=== PATIENT | female | born 1935 | race Asian ===

== ENCOUNTER 2016-09-13 19:58 | Observation (INO) | payer MEDICARE, OTHER ==
[~2016-09-13] VITALS: Ht 152.4 cm; Wt 47.0 kg
[2016-09-13] MEDS ORDERED: NITROGLYCERIN 2% 1 GM OINT PKT TD STA (20:29)
[2016-09-13] MEDS ORDERED: ONDANSETRON 4 MG INJ IV STA (20:29)
[2016-09-13] MEDS ORDERED: morphine 4 MG/ML VIAL IV STA (20:29)
[2016-09-13 21:07] LABS: BASOPHILS % 0.9 % (0.0-2.0); EOSINOPHILS # 0.3 10^3/ul (0.0-0.5); EOSINOPHILS % 5.8 % (0.0-7.0); HEMOGLOBIN 10.8 g/dl (12.0-16.0); LYMPHOCYTES # 2.2 10^3/ul (0.8-2.9); LYMPHOCYTES % 47.6 % (15.0-51.0); MEAN CORPUSCULAR HEMOGLOBIN 33.9 pg (29.0-33.0); MEAN CORPUSCULAR HGB CONC 34.8 g/dl (32.0-37.0); MEAN CORPUSCULAR VOLUME 97.2 fl (82.0-101.0); MEAN PLATELET VOLUME 9.1 fl (7.4-10.4); MONOCYTE # 0.6 10^3/ul (0.3-0.9); MONOCYTES % 12.9 % (0.0-11.0); NEUTROPHIL # 1.5 10^3/ul (1.6-7.5); NEUTROPHILS % 32.6 % (39.0-77.0); PLATELET COUNT 183 10^3/UL (140-415); RED BLOOD COUNT 3.19 10^6/ul (4.20-5.40); RED CELL DISTRIBUTION WIDTH 13.2 % (11.5-14.5); WHITE BLOOD COUNT 4.6 10^3/ul (4.8-10.8)
[2016-09-13 21:23] LABS: INR 1.16; PROTIME 14.8 Sec (12.2-14.2); PT RATIO 1.2
[2016-09-13 21:24] LABS: PARTIAL THROMBOPLASTIN TIME 36.3 Sec (25.0-35.0)
[2016-09-13 21:26] LABS: ALANINE AMINOTRANSFERASE 35 IU/L (13-69); ALBUMIN 3.8 g/dl (3.3-4.9); ALBUMIN/GLOBULIN RATIO 1.15; ALKALINE PHOSPHATASE 55 IU/L (42-121); ANION GAP 17 (8-16); ASPARTATE AMINO TRANSFERASE 34 IU/L (15-46); BILIRUBIN,INDIRECT 0.6 mg/dl (0-1.1); BILIRUBIN,TOTAL 0.6 mg/dl (0.2-1.3); BLOOD UREA NITROGEN 13 mg/dl (7-20); CALCIUM 8.7 mg/dl (8.4-10.2); CARBON DIOXIDE 27 mmol/L (21-31); CHLORIDE 91 mmol/L (97-110); CREATININE 0.82 mg/dl (0.44-1.00); GLUCOSE 87 mg/dl (70-220); POTASSIUM 3.9 mmol/L (3.5-5.1); SODIUM 131 mmol/L (135-144); TOTAL PROTEIN 7.1 g/dl (6.1-8.1)
[2016-09-13 21:43] LABS: TROPONIN-I < 0.012 ng/ml (0.00-0.12)
[2016-09-14] VITALS (10 sets, daily range): BP systolic 118–146; BP diastolic 58–67; PULSE 59–60; RESP 16–18; TEMP 98.3; Ht 152.4 cm; Wt 47.0 kg
--- NOTE | 2016-09-14 02:24 | RADRPT ---
PROCEDURE: Portable chest x-ray. CLINICAL INDICATION: Chest pain. TECHNIQUE: Portable AP view of the chest. COMPARISON: None. FINDINGS: No pulmonary edema or conolidation is identified. The cardiac silhouette is enlarged. There are aor tic calcifications. There is a left chest cardiac pacemaker. No pleural effusion is seen. There is no pneumothorax. IMPRESSION: 1. No evidence of acute cardiopulmonary disease. 2. Enlarged cardiac silhouette and aortic atherosclerosis. 3. Cardiac pacemaker. RPTAT: HTAR .Porfirio Martins MD, MD Date Time Electronically viewed and signed by .Porfirio Martins MD, MD on 09/14/2016 02:23 .R/
[2016-09-14] MEDS ORDERED: ALPR0.254 PO (02:34)
[2016-09-14] MEDS ORDERED: LOSA50TA6 PO (02:34)
[2016-09-14] MEDS ORDERED: ATOR20TA38 PO (02:34)
[2016-09-14] MEDS ORDERED: GLUC1CAP48 PO (02:34)
[2016-09-14] MEDS ORDERED: CALC600T5 PO (02:34)
[2016-09-14] MEDS ORDERED: MULT-860 PO (02:34)
[2016-09-14] MEDS ORDERED: APIX2.5T PO (02:34)
[2016-09-14] MEDS ORDERED: MAGN400T27 PO (02:34)
[2016-09-14] MEDS ORDERED: NACL 0.9% 3 ML SYG IV SCH (04:00)
[2016-09-14] MEDS ORDERED: BISACODYL (EC) 5 MG TAB PO PRN (04:00)
[2016-09-14] MEDS ORDERED: NITROGLYCERIN (SL) 0.4 MG TAB SL PRN (04:00)
[2016-09-14] MEDS ORDERED: ACETAMINOPHEN 325 MG TAB PO PRN (04:00)
[2016-09-14] MEDS ORDERED: DOCUSATE SODIUM 100 MG CAP PO PRN (04:00)
[2016-09-14] MEDS ORDERED: ONDANSETRON 4 MG INJ IV PRN (04:00)
[2016-09-14] MEDS ORDERED: ALPRAZOLAM 0.25 MG TAB PO PRN (04:00)
[2016-09-14] MEDS ORDERED: morphine 2 MG INJ IV PRN (04:00)
[2016-09-14] MEDS ORDERED: LOSA25TA5 PO (04:32)
[2016-09-14] MEDS ORDERED: PANTOPRAZOLE 40 MG INJ IV SCH (06:00)
[2016-09-14 06:01] LABS: BASOPHILS % 0.9 % (0.0-2.0); EOSINOPHILS # 0.2 10^3/ul (0.0-0.5); EOSINOPHILS % 5.2 % (0.0-7.0); HEMATOCRIT 34.9 % (37.0-47.0); HEMOGLOBIN 11.6 g/dl (12.0-16.0); LYMPHOCYTES # 1.8 10^3/ul (0.8-2.9); LYMPHOCYTES % 41.4 % (15.0-51.0); MEAN CORPUSCULAR HEMOGLOBIN 32.9 pg (29.0-33.0); MEAN CORPUSCULAR HGB CONC 33.2 g/dl (32.0-37.0); MEAN CORPUSCULAR VOLUME 98.9 fl (82.0-101.0); MEAN PLATELET VOLUME 10.1 fl (7.4-10.4); MONOCYTE # 0.5 10^3/ul (0.3-0.9); MONOCYTES % 10.8 % (0.0-11.0); NEUTROPHIL # 1.8 10^3/ul (1.6-7.5); NEUTROPHILS % 41.5 % (39.0-77.0); RED BLOOD COUNT 3.53 10^6/ul (4.20-5.40); RED CELL DISTRIBUTION WIDTH 13.5 % (11.5-14.5); WHITE BLOOD COUNT 4.4 10^3/ul (4.8-10.8)
[2016-09-14 06:04] LABS: PLATELET COUNT 146 10^3/UL (140-415); POSITIVE DIFF @See below
[2016-09-14 06:37] LABS: CREATINE KINASE 130 IU/L (23-200)
[2016-09-14 06:41] LABS: ALBUMIN 3.9 g/dl (3.3-4.9); ALBUMIN/GLOBULIN RATIO 1.21; BILIRUBIN,INDIRECT 0.7 mg/dl (0-1.1); BILIRUBIN,TOTAL 0.7 mg/dl (0.2-1.3); CALCIUM 8.8 mg/dl (8.4-10.2); CHOL/HDL RATIO 1.8 RATIO; CREATININE 0.85 mg/dl (0.44-1.00); MAGNESIUM 2.1 mg/dl (1.7-2.5); POTASSIUM 4.3 mmol/L (3.5-5.1); TOTAL PROTEIN 7.1 g/dl (6.1-8.1)
[2016-09-14 06:47] LABS: CK-MB 1.32 ng/ml (0.0-2.4)
[2016-09-14 07:00] LABS: TROPONIN-I < 0.012 ng/ml (0.00-0.12)
--- NOTE | 2016-09-14 07:46 | HP ---
Date/Time of Note Date/Time of Note DATE: 09/14/16 TIME: 07:40 Assessment/Plan VTE Prophylaxis VTE Prophylaxis Intervention: SCD's Lines/Catheters IV Catheter Type (from [facility]): Saline Lock Assessment/Plan Chief Complaint/Hosp Course This is a 80-year-old female being admitted to the telemetry floor for: #1 chest pain: Rule out ACS versus GI etiology: Based on patient's history and symptoms there is a good possibility that this is GI in nature however because of her comorbidities we will workup for cardiac etiology as well. Will trend cardiac enzymes. Will check a 2D echocardiogram. Will consult cardiology. Cardiac etiology is ruled out will consider GI evaluation. 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 Continue Eliquis. #3 anemia: Stable continue monitor. #4 hypertension: Verify home medication dosage. #5 DVT and GI prophylaxis: SCDs, Protonix Further treatment strategy will be implemented for clinical course. Problems: HPI/ROS Admit Date/Time Admit Date/Time Sep 14, 2016 at 03:46 Hx of Present Illness Chief complaint: Chest pain This is a 80-year-old female who is coming in today via ambulance to [facility] after having an episode of chest pain. Patient states that she was drinking Coke and eating biscuits and approximately within 20 minutes she started having epigastric/chest pain. She does state that she has a history of acid reflux as well. She was brought in by ambulance and ambulance receive nitro and aspirin and she also took a dose of her Eliquis and she states that her chest pain improved. She has history of A. fib and has a cardiac pacemaker. He is currently pain-free. Allergies: NKDA Medications: See DOUGLAS ROS Const: As per HPI Eyes : No pain discharge or redness or change in visual acuity ENT: No pain, sore throat, congestion, congestion, dysphagia or discharge Respiratory: No shortness of breath, cough, sputum, wheezing, or pleuritic pain Cardiovascular: As per HPI GI : As per HPI Genitourinary: No dysuria, hematuria, flank pain , discharge or CVA tenderness Musculoskeletal: No joint pain, back pain, neck pain, restricted range of motion in neck or joints Skin: No rash, bruising or hives Neuro: No headache, dizziness, syncope, seizure, focal weakness Endocrine: No polyuria, polydipsia, temperature intolerance Psych: No hallucination, depression, anxiety or suicidal ideation PMH/Family/Social Past Medical History TIA, anemia, A. fib, reflux, diverticulosis, hypertension Past Surgical History Pacemaker placement Family History Significant Family History: hypertension (Mom and dad) Social History Alcohol Use: none Smoking Status: Never smoker Drug Use: none Exam/Review of Systems Vital Signs Vitals Vital Signs Date Time Temp Pulse Resp B/P Pulse Ox O2 Delivery O2 Flow Rate FiO2 09/14/16 06:12 60 09/14/16 04:11 98.3 18 121/72 100 Room Air Exam Exam General: Patient is well-developed well-nourished The patient is alert oriented -3 lying comfortably in bed. HEENT: Atraumatic, normocephalic. The pupils are equal, round and reactive. Extraocular motor are intact Neck: Supple with full range of motion. No rigidity or meningismus Chest: Nontender Lungs: Clear to auscultation bilaterally no crackles rales or wheezing Heart: Normal S1-S2, Regular rhythm and rate. No murmur, S3, or S4 Abdomen: Soft, mild tenderness to palpation over the epigastric region, normal bowel sounds Extremities: Normal to inspection, no edema no cyanosis Neurologic: Normal mental status, speech normal, cranial nerves II through XII are intact, motor and sensory are intact, no focal weakness Additional Comments PROCEDURE: Portable chest x-ray. CLINICAL INDICATION: Chest pain. TECHNIQUE: Portable AP view of the chest. COMPARISON: None. FINDINGS: No pulmonary edema or conolidation is identified. The cardiac silhouette is enlarged. There are aortic calcifications. There is a left chest cardiac pacemaker. No pleural effusion is seen. There is no pneumothorax. IMPRESSION: 1. No evidence of acute cardiopulmonary disease. 2. Enlarged cardiac silhouette and aortic atherosclerosis. 3. Cardiac pacemaker. RPTAT: HTAR .Porfirio Martins MD, Date Time Electronically viewed and signed by .Porfirio Martins MD, on 09/14/2016 02:23 Labs Result Diagram: 09/14/16 0520 09/14/16 0520 Medications Medications Current Medications Ondansetron HCl (Zofran Inj) 4 mg Q6H PRN IV NAUSEA AND/OR VOMITING; Start at 04:00 Nitroglycerin (Nitroglycerin (Sl Tab) 0.4 Mg) 1 tab Q5M PRN SL CHEST PAIN; Start 09/14/16 at 04:00 Acetaminophen (Tylenol Tab) 650 mg Q6H PRN PO PAIN LEVEL 1-3 OR FEVER; Start at 04:00 Morphine Sulfate (morphine) 2 mg Q4H PRN IV PAIN LEVEL 7-10; Start 09/14/16 at 04:00 Docusate Sodium (Colace) 100 mg Q12H PRN PO CONSTIPATION; Start 09/14/16 at 04: 00 Bisacodyl (Dulcolax) 5 mg DAILY PRN PO CONSTIPATION; Start 09/14/16 at 04:00 Pantoprazole (Protonix Iv) 40 mg DAILY@06 IV Last administered on 09/14/16t 06: 39; Admin Dose 40 MG; Start 09/14/16 at 06:00 Alprazolam (Xanax) 0.25 mg TID PRN PO ANXIETY; Start 09/14/16 at 04:00 Apixaban (Eliquis) 2.5 mg BID PO ; Start 09/14/16 at 09:00 Atorvastatin Calcium (Lipitor) 20 mg QHS PO ; Start 09/14/16 at 21:00 Magnesium Oxide (Mag-Ox 400) 400 mg BID PO ; Start 09/14/16 at 09:00 JENNIE IBARRA Sep 14, 2016 07:46
[2016-09-14] MEDS ORDERED: MAGNESIUM OXIDE 400 MG TAB PO SCH (09:00)
[2016-09-14] MEDS ORDERED: APIXABAN 5 MG TABLET PO SCH (09:00)
[2016-09-14 12:01] LABS: THYROID STIMULATING HORMONE 3.66 MIU/L (0.465-4.680)
--- NOTE | 2016-09-14 12:16 | RADRPT ---
Echocardiogram Report Patient Name: BK QUARLES Gender: Female Date: 1935 Study Date: 14-Sep-2016 Supply Chain Analyst: Cassandra [facility] Location: [id number] Ref. Physician: JENNIE IBARRA Quality: Adequate Procedures: Transthoracic echocardiogram with complete 2D, M-Mode, and doppler examination. Indications: Chest Pain. 2D/M Mode Doppler Measurement Value Normal Ranges Measurement Value Normal Ranges LVIDd 2D 3.4 3.5 - 5.6 cm TANNER Vmax 0.8 cm2 LVIDs 2D 2.7 2.1 - 4.1 cm TANNER VTI 0.8 cm2 LVPWd 2D 1.1 0.6 - 1.1 cm AV Peak Noah 2.1 m/sec IVSd 2D 1.1 0.6 - 1.1 cm AV Peak PG 17.3 mmHg AoR Diam 2D 2.2 2.0 - 3.7 cm AI Peak PG 57.9 mmHg EDV 2D 47.8 cm3 AI Peak Noah 3.8 m/sec ESV 2D 19.3 cm3 AI PHT 1501.8 msec LA Dimen 2D 3.5 2.3 - 4.0 cm LVOT Peak Noah 1.0 m/sec LVOT Diam 1.5 cm LVOT Peak PG 3.7 mmHg MV E Peak Noah 0.7 m/sec MV A Peak Noah 0.5 m/sec MV E/A 1.2 MV Decel Time 195 msec MV Decel [place] 3 MV E/A 1.2 TR Peak Noah 3.0 m/sec TR Peak PG 35.5 mmHg RVSP 39.0 mmHg Findings Left Ventricle: Normal left ventricular systolic function. Normal left ventricular cavity size. Mild concentric left ventricular hypertrophy. Ejection fraction is visually estimated at 60 %. Right Ventricle: Normal right ventricular size. Normal right ventricular systolic function. Pacemaker right heart. Left Atrium: The left atrium is normal in size. Right Atrium: The right atrium is normal in size. Mitral Valve: Mild mitral leaflet calcification. Mild mitral annular calcification. Mild mitral valve regurgitation. Aortic Valve: Aortic sclerosis without stenosis. Mild aortic valve regurgitation. Tricuspid Valve: Tricuspid valve not well visualized. Estimated peak PA systolic pressure 39 mmHg. There is moderate tricuspid regurgitation. Pulmonic Valve: Pulmonic valve not well visualized. There is trace pulmonic regurgitation. Pericardium: Normal pericardium with no significant pericardial effusion. Aorta: Normal aortic root. IVC: Normal size and normal respiratory collapse consistent with normal right atrial pressure. Conclusions Normal left ventricular systolic function. Normal left ventricular cavity size. Mild concentric left ventricular hypertrophy. Ejection fraction is visually estimated at 60 %. Normal right ventricular size. Normal right ventricular systolic function. Pacemaker right heart. The left atrium is normal in size. The right atrium is normal in size. Mild mitral valve regurgitation. Aortic sclerosis without stenosis. Mild aortic valve regurgitation. Estimated peak PA systolic pressure 39 mmHg. There is moderate tricuspid regurgitation. Normal pericardium with no significant pericardial effusion. Electronically Signed By: Thomas Alanis 14-Sep-2016 12:15:30 -0700 Patient Name: BK QUARLES Study Date: 14-Sep-2016 [id number]
--- NOTE | 2016-09-14 12:24 | CONS ---
Date/Time of Note Date/Time of Note DATE: 09/14/16 TIME: 12:17 Assessment/Plan Assessment/Plan Additional Assessment/Plan Abdominal pain and shortness of breath Preserved ejection fraction Mitral, tricuspid and aortic valve regurgitation Paroxysmal atrial fibrillation History of pacemaker -Patient with symptoms of burning-like sensation in her abdomen as well as shortness of breath with deep inspiration. Symptoms occurred after eating. As per patient, this feels similar to her "acid" reflux in the past. ECG without significant ischemic abnormalities, first to set of cardiac enzymes greater than 8 hours apart are negative. Echocardiogram with preserved ejection fraction. Symptoms have since resolved. No further inpatient cardiac workup needed at the current time. 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 Consultation Date/Type/Reason Admit Date/Time Sep 14, 2016 at 03:46 Type of Consultation: cv Reason for Consultation Cardiac evaluation Hx of Present Illness This is an 80-year-old female with past medical history of atrial fibrillation, pacemaker who presents with symptoms of abdominal pain and shortness of breath. Patient states yesterday afternoon, she drank some coke as well as crackers. A few minutes after, she developed severe discomfort in her upper abdomen. The pain was burning-like. She also had shortness of breath as well. Pain was exacerbated by deep breathing. She denies discomfort in her chest but points to her abdomen. Because of severe symptoms, she came to the emergency room for further evaluation and care. Symptoms have since resolved. She otherwise denies exertional shortness of breath or chest pain prior to this episode. She does have fatigue since she had a pacemaker put in over a year ago secondary to "low heart rate". Otherwise denies any dizziness or lightheadedness. 12 point review of systems was performed with all pertinent positives and negatives mentioned above and all else is negative Past Medical History Atrial fibrillation Medical History: hypertension Past Surgical History Pacemaker Family History Significant Family History: no pertinent family hx Social History Alcohol Use: none Smoking Status: Never smoker Drug Use: none Other Social History Lives at home Exam/Review of Systems Vital Signs Vitals Vital Signs Date Time Temp Pulse Resp B/P Pulse Ox O2 Delivery O2 Flow Rate FiO2 09/14/16 11:49 60 09/14/16 11:46 98.2 16 118/66 98 09/14/16 04:11 Room Air Exam No apparent distress, son at bedside Constitutional: alert, frail, oriented Head: normocephalic Respiratory: other (Coarse breath sounds bilaterally, no wheezing) Cardiovascular: other (S1-S2 heard), regular rate and rhythm, systolic murmur Gastrointestinal: bowel sounds, other (Mild discomfort with epigastric palpation, no guarding), soft Extremities: other (No edema) Results Result Diagram: 09/14/1620 09/14/16 0520 Results 24 hrs Laboratory Tests Test 09/13/16 20:41 09/14/16 05:20 09/14/16 07:46 White Blood Count 4.6 L 4.4 L Red Blood Count 3.19 L 3.53 L Hemoglobin 10.8 L 11.6 L Hematocrit 31.0 L 34.9 L Mean Corpuscular Volume 97.2 98.9 Mean Corpuscular Hemoglobin 33.9 H 32.9 Mean Corpuscular Hemoglobin Concent 34.8 33.2 Red Cell Distribution Width 13.2 13.5 Platelet Count 183 146 # Mean Platelet Volume 9.1 10.1 Neutrophils % 32.6 L 41.5 Lymphocytes % 47.6 41.4 Monocytes % 12.9 H 10.8 Eosinophils % 5.8 5.2 Basophils % 0.9 0.9 Nucleated Red Blood Cells % 0.0 0.0 Neutrophils # 1.5 L 1.8 Lymphocytes # 2.2 1.8 Monocytes # 0.6 0.5 Eosinophils # 0.3 0.2 Basophils # 0.0 0.0 Nucleated Red Blood Cells # 0.0 0.0 Prothrombin Time 14.8 H Prothrombin Time Ratio 1.2 INR International Normalized Ratio 1.16 Activated Partial Thromboplast Time 36.3 H Sodium Level 131 L 140 Potassium Level 3.9 4.3 Chloride Level 91 L 101 # Carbon Dioxide Level 27 27 Anion Gap 17 H 16 Blood Urea Nitrogen 13 11 Creatinine 0.82 0.85 Glucose Level 87 88 Calcium Level 8.7 8.8 Total Bilirubin 0.6 0.7 Direct Bilirubin 0.00 0.00 Indirect Bilirubin 0.6 0.7 Aspartate Amino Transf (AST/SGOT) 34 30 Alanine Aminotransferase (ALT/SGPT) 35 34 Alkaline Phosphatase 55 53 Troponin I < 0.012 < 0.012 Total Protein 7.1 7.1 Albumin 3.8 3.9 Globulin 3.30 H 3.20 Albumin/Globulin Ratio 1.15 1.21 Hemoglobin A1c 5.9 Magnesium Level 2.1 Creatine Kinase 130 Creatine Kinase Index 1.0 Creatinine Kinase MB (Mass) 1.32 B-Type Natriuretic Peptide 602 H Triglycerides Level 49 Cholesterol Level 127 LDL Cholesterol, Calculated 49 HDL Cholesterol 68 Cholesterol/HDL Ratio 1.8 Thyroid Stimulating Hormone (TSH) Pending Lab Scanned Report LAB Medications Medications Current Medications Ondansetron HCl (Zofran Inj) 4 mg Q6H PRN IV NAUSEA AND/OR VOMITING; Start at 04:00 Nitroglycerin (Nitroglycerin (Sl Tab) 0.4 Mg) 1 tab Q5M PRN SL CHEST PAIN; Start 09/14/16 at 04:00 Acetaminophen (Tylenol Tab) 650 mg Q6H PRN PO PAIN LEVEL 1-3 OR FEVER; Start at 04:00 Morphine Sulfate (morphine) 2 mg Q4H PRN IV PAIN LEVEL 7-10; Start 09/14/16 at 04:00 Docusate Sodium (Colace) 100 mg Q12H PRN PO CONSTIPATION; Start 09/14/16 at 04: 00 Bisacodyl (Dulcolax) 5 mg DAILY PRN PO CONSTIPATION; Start 09/14/16 at 04:00 Pantoprazole (Protonix Iv) 40 mg DAILY@06 IV Last administered on 09/14/16 06: 39; Admin Dose 40 MG; Start 09/14/16 at 06:00 Alprazolam (Xanax) 0.25 mg TID PRN PO ANXIETY; Start 09/14/16 at 04:00 Apixaban (Eliquis) 2.5 mg BID PO Last administered on 09/14/16 09:20; Admin Dose 2.5 MG; Start 09/14/16 at 09:00 Atorvastatin Calcium (Lipitor) 20 mg QHS PO ; Start 09/14/16 at 21:00 Magnesium Oxide (Mag-Ox 400) 400 mg BID PO Last administered on 09/14/16 09:51 ; Admin Dose 400 MG; Start 09/14/16 at 09:00 Procedures Procedures ECG done yesterday demonstrates sinus rhythm at 60 bpm, first-degree AV block with PA interval 226 ms, QRS 84 ms, no significant ischemic ST abnormalities Thomas Alanis DO Sep 14, 2016 12:24
--- NOTE | 2016-09-14 13:44 | PDOCDIS ---
Discharge Instructions CONDITION Patient Condition: Good HOME CARE INSTRUCTIONS: Diet Instructions: Modified Fat ACTIVITY: Activity Restrictions: No Restrictions FOLLOW UP/APPOINTMENTS Follow-up Plan FOLLOW UP WITH YOUR PRIMARY CARE PHYSICIAN IN 1-2 WEEKS LESLIE JOINER Sep 14, 2016 13:44
--- NOTE | 2016-09-14 13:50 | DS ---
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 #3 anemia: Stable #4 hypertension-stable Continue home meds #5 History of acid reflux Continue home PPI Patient Condition: Good Hospital Course Patient is a 80-year-old female with a history of A. fib status post pacemaker placement in the past, GERD, hypertension. Patient presents with chest pain, ACS was ruled out patient was evaluated by cardiology. Cardiology believed that patient's pain was related to her acid reflux as is similar to previous episodes of acid reflux. Troponins were negative and echo showed no significant findings. Patient's pain was resolved on day of discharge. On the day of discharge patient's vitals, labs, physical exam stable, she no acute complaints and questions were answered. Home Meds Reported Medications Losartan Potassium* (Losartan Potassium*) 25 Mg Tablet, 25 MG PO DAILY, TAB 09/14/16 Magnesium Oxide* (Mag-Oxide*) 400 Mg Tablet, 400 MG PO BID, TAB 09/14/16 Apixaban* (Eliquis*) 2.5 Mg Tablet, 2.5 MG PO BID, TAB 09/14/16 Calcium Carbonate (CALCIUM) 600 Mg Tablet, 600 MG PO, TAB 09/14/16 Gluc 2KCL/Chondr/Ap Hy/Hy Ac (GLUCOSAMINE & CHONDROITIN CAP) 1 Each Capsule, 1 EACH PO, CAP 09/14/16 Mu-Vits-Min Th/Lycopene/Lutein (CENTRUM SILVER TABLET) 1 Each Tablet, 1 EACH PO , TAB 09/14/16 Alprazolam* (Alprazolam*) 0.25 Mg Tablet, 0.25 MG PO TID Y for ANXIETY, TAB 09/14/16 Atorvastatin Calcium* (Atorvastatin Calcium*) 20 Mg Tablet, 20 MG PO QHS, #30 TAB 09/14/16 Losartan Potassium* (Losartan Potassium*) Unknown Strength Tablet, 0 PO BID, TAB 09/14/16 Follow-up Plan Follow-up with PCP 1-2 weeks Primary Care Provider Elise Smith Time spent on discharge: > 30 minutes LESLIE JOINER Sep 14, 2016 13:50
[2016-09-14] MEDS ORDERED: ATORVASTATIN 20 MG TAB PO SCH (21:00)
--- NOTE | 2016-09-17 06:29 | ERA ---
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 The patient complains of shortness of breath as well. 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 She describes her pain as a pressure without radiation no palpitations dizziness or syncope. The patient said that she received nitroglycerin by EMS as well as an aspirin. She said the nitroglycerin brought her pain from 8 to a 2 out of 10. She says the pain is currently very mild and almost gone. No abdominal pain nausea vomiting or diarrhea. ROS All systems reviewed and are negative except as per history of present illness. Medications Home Meds Reported Medications Losartan Potassium* (Losartan Potassium*) 25 Mg Tablet, 25 MG PO DAILY, TAB 09/14/16 Magnesium Oxide* (Mag-Oxide*) 400 Mg Tablet, 400 MG PO BID, TAB 09/14/16 Apixaban* (Eliquis*) 2.5 Mg Tablet, 2.5 MG PO BID, TAB 09/14/16 Calcium Carbonate (CALCIUM) 600 Mg Tablet, 600 MG PO, TAB 09/14/16 Gluc 2KCL/Chondr/Ap Hy/Hy Ac (GLUCOSAMINE & CHONDROITIN CAP) 1 Each Capsule, 1 EACH PO, CAP 09/14/16 Mu-Vits-Min Th/Lycopene/Lutein (CENTRUM SILVER TABLET) 1 Each Tablet, 1 EACH PO , TAB 09/14/16 Alprazolam* (Alprazolam*) 0.25 Mg Tablet, 0.25 MG PO TID Y for ANXIETY, TAB 09/14/16 Atorvastatin Calcium* (Atorvastatin Calcium*) 20 Mg Tablet, 20 MG PO QHS, #30 TAB 09/14/16 Losartan Potassium* (Losartan Potassium*) Unknown Strength Tablet, 0 PO BID, TAB 09/14/16 Allergies Allergies: Coded Allergies: No Known Allergy (Unverified , 09/13/16) PMhx/Soc History of Surgery: Yes (pacemaker.cataract both eyes) Anesthesia Reaction: No Hx Neurological Disorder: No Hx Respiratory Disorders: No Hx Cardiac Disorders: Yes (afib,pacemaker,tia) Hx Psychiatric Problems: No Hx Miscellaneous Medical Probl: Yes (colonoscopy 2013,pancreatic cyst) Hx Alcohol Use: No Hx Substance Use: No Hx Tobacco Use: No Smoking Status: Never smoker FmHx Family History: No coronary disease Physical Exam Vitals Vital Signs Date Time Temp Pulse Resp B/P Pulse Ox O2 Delivery O2 Flow Rate FiO2 09/14/16 02:00 98.3 60 16 122/78 99 Room Air 09/14/16 00:00 98.3 60 16 127/83 99 Room Air 09/13/16 22:00 98.3 60 16 150/71 100 Room Air 09/13/16 20:03 98.1 70 16 174/77 98 Physical Exam Const: Well-developed, well-nourished Head: Atraumatic, normocephalic Eyes: Normal Conjunctiva, PERRLA, EOMI, normal sclera, no nystagmus ENT: Normal External Ears, Nose and Mouth, moist mucus membranes. Neck: Full range of motion. No meningismus, no lymphadenopathy. Resp: Clear to auscultation bilaterally, no wheezing, rhonchi, rales Cardio: Irregular rhythm, no murmurs, S1 S2 present Abd: Soft, non tender x 4, non distended. Normal bowel sounds, no guarding or rebound, no pulsitile abdominal masses or bruits Skin: No petechiae or rashes, no ecchymosis , no maculopapular rash Back: No midline or flank tenderness Ext: No cyanosis, or edema, FROM x 4, normal inspection, neurovascularly intact x 4 Neur: Awake and alert, STR 5/5 x 4, sensation intact x 4, no focal findings, cerebellum intact Psych: Normal Mood and Affect Result Diagram: 09/14/1651909/14/16519 Results 24 hrs Laboratory Tests Test 09/13/16 20:41 White Blood Count 4.610^3/ul Red Blood Count 3.1910^6/ul Hemoglobin 10.8g/dl Hematocrit 31.0% Mean Corpuscular Volume 97.2fl Mean Corpuscular Hemoglobin 33.9pg Mean Corpuscular Hemoglobin Concent 34.8g/dl Red Cell Distribution Width 13.2% Platelet Count 99177^3/UL Mean Platelet Volume 9.1fl Neutrophils % 32.6% Lymphocytes % 47.6% Monocytes % 12.9% Eosinophils % 5.8% Basophils % 0.9% Nucleated Red Blood Cells % 0.0/100WBC Neutrophils # 1.510^3/ul Lymphocytes # 2.210^3/ul Monocytes # 0.610^3/ul Eosinophils # 0.310^3/ul Basophils # 0.010^3/ul Nucleated Red Blood Cells # 0.010^3/ul Prothrombin Time 14.8Sec Prothrombin Time Ratio 1.2 INR International Normalized Ratio 1.16 Activated Partial Thromboplast Time 36.3Sec Sodium Level 131mmol/L Potassium Level 3.9mmol/L Chloride Level 91mmol/L Carbon Dioxide Level 27mmol/L Anion Gap 17 Blood Urea Nitrogen 13mg/dl Creatinine 0.82mg/dl Glucose Level 87mg/dl Calcium Level 8.7mg/dl Total Bilirubin 0.6mg/dl Direct Bilirubin 0.00mg/dl Indirect Bilirubin 0.6mg/dl Aspartate Amino Transf (AST/SGOT) 34IU/L Alanine Aminotransferase (ALT/SGPT) 35IU/L Alkaline Phosphatase 55IU/L Troponin I < 0.012ng/ml Total Protein 7.1g/dl Albumin 3.8g/dl Globulin 3.30g/dl Albumin/Globulin Ratio 1.15 Current Medications Medications (Trade) Dose Ordered Sig/Leonela Route PRN Reason Start Time Stop Time Status Last Admin Dose Admin Nitroglycerin (Nitroglycerin 2% Oint) 1 inch ONCE STAT TD 09/13/16 20:29 09/13/16 20:31 DC Morphine Sulfate (morphine) 4 mg ONCE STAT IV 09/13/16 20:29 09/13/16 20:31 DC Ondansetron HCl (Zofran Inj) 4 mg ONCE STAT IV 09/13/16 20:29 09/13/16 20:31 DC Procedures/MDM PROCEDURE: Portable chest x-ray. CLINICAL INDICATION: Chest pain. TECHNIQUE: Portable AP view of the chest. COMPARISON: None. FINDINGS: No pulmonary edema or conolidation is identified. The cardiac silhouette is enlarged. There are aortic calcifications. There is a left chest cardiac pacemaker. No pleural effusion is seen. There is no pneumothorax. IMPRESSION: 1. No evidence of acute cardiopulmonary disease. 2. Enlarged cardiac silhouette and aortic atherosclerosis. 3. Cardiac pacemaker. RPTAT: HTAR .Porfirio Martins MD, MD Date Time Electronically viewed and signed by .Porfirio Martins MD, MD on 09/14/2016 02:23 .R/ CC: ROMAN CHÁVEZ DO EKG: Rate/Rhythm: Atrial fibrillation with left bundle branch block QRS, ST, QT: NORMAL UT, QRS, QT] Impression: Atrial fibrillation with a left bundle branch block Patient's symptoms are concerning for cardiac cause will require inpatient workup and continuous monitoring. Further w/u for ischemia, arrhythmia, PE or dissection will be deferred to the inpatient team. Accepting Care Team: Current data and ongoing care discussed. Time: Time of admission Primary Provider: [XOXOXO] Consulting: [XOXOXO] Outstanding Data: none] Departure Diagnosis: Primary Impression: Chest pain Qualified Code: R07.9 - Chest pain, unspecified type Condition: Stable Patient Instructions: Chest Pain, Uncertain Cause ROMAN CHÁVEZ DO Sep 17, 2016 06:29
== END 2016-09-14 18:50 | disposition home or self-care (01) ==
LOC: E/R 19:58 → MS4 09-14 03:46
PROVIDERS: ADMIT Family Medicine; ATTEND Family Medicine
DX: K21.9 Gastro-esophageal reflux disease without esophagitis (principal); R07.9 Chest pain, unspecified; I48.0 Paroxysmal atrial fibrillation; Z79.01 Long term (current) use of anticoagulants; D64.9 Anemia, unspecified; I10 Essential (primary) hypertension; Z95.0 Presence of cardiac pacemaker; I08.3 Combined rheumatic disorders of mitral, aortic and tricuspid valves; Z82.49 Family history of ischemic heart disease and other diseases of the circulatory system; Z86.73 Personal history of transient ischemic attack (TIA), and cerebral infarction without residual deficits
CPT/HCPCS: 71010; 80053; 80061; 82550; 82553; 83036; 83735; 83880; 84443; 84484; 85025; 85610; 85730; 93005; 93306; G0378; J2270; J2405; C9113

== ENCOUNTER 2017-11-16 22:50 | Inpatient (IN) | END 2017-11-20 14:15 | disposition home or self-care (01) | DRG 378 ==

== ENCOUNTER 2018-09-17 11:55 | Emergency (ER) | payer MEDICARE, OTHER ==
[~2018-09-17] VITALS: Ht 147.3 cm; Wt 48.8 kg
[~2018-09-17 11:55] MED LIST: ALPR0.254 PO; AMOX500C2 PO; APIX2.5T PO; ATOR20TA38 PO; BENZ-5 PO; CALC600T5 PO; CLAR500T PO; DRON400T2 PO; GLUC1CAP48 PO; LOSA25TA12 PO; MAGN400T27 PO; MULT-860 PO; PANT40TA4 PO; SUCR1TAB35 PO; [UNRECOGNIZED DRUG - CODE] PO
[2018-09-17 11:57] VITALS: BP 126/58; PULSE 62; RESP 20; Ht 147.3 cm; Wt 48.8 kg
[2018-09-17] MEDS ORDERED: HYDR28OI2 TP (12:13)
--- NOTE | 2018-09-17 13:39 | ERD ---
ER Documentation Chief Complaint Chief Complaint lower lip swelling x1week HPI Patient is an 82-year-old female with hypertension and atrial fibrillation who presents with lower lip swelling. She thinks it might be an allergy. Started 1 week ago. She has tried Vaseline on the lip. She denies new foods but says t hat she tried a new facial cream 2 weeks ago. However her face is fine except the lower lip that was swollen. The swelling is better now but she still has cracked lips. She has a slight amount of pain. She is breathing without difficulty. She is not on an KELLIE inhibitor. She does have a primary doctor. ROS All systems reviewed and are negative except as per history of present illness. Medications Home Meds Active Scripts Hydrocortisone Acetate (Hydrocortisone) 28 Gm Oint...g., 28 GM TP DAILY, #1 Prov:SANJUANITA FLAHERTY MD 09/17/18 Bismuth Subsalicylate (PINK BISMUTH) 262 Mg Tablet, 262 MG PO QID for 2 qid for 10 Days, #100 TAB Prov:KAYLEEN SIMON MD 11/20/17 Clarithromycin* (Clarithromycin*) 500 Mg Tablet, 500 MG PO BID for 10 Days, #20 TAB Prov:KAYLEEN SIMON MD 11/20/17 Amoxicillin* (Amoxicillin*) 500 Mg Cap, 500 MG PO BID for 2 caps bid for 10 Days, #40 CAP Prov:KAYLEEN SIMON MD 11/20/17 Pantoprazole* (Pantoprazole*) 40 Mg Tablet.dr, 40 MG PO BID for 60 Days, #120 TAB Prov:KAYLEEN SIMON MD 11/20/17 Sucralfate (Carafate) 1 Gm Tablet, 1 GM PO QID for 30 Days, #120 TAB For 1 month only Prov:KAYLEEN SIMON MD 11/20/17 Dronedarone Hydrochloride* (Multaq*) 400 Mg Tablet, 400 MG PO BID WITH MEALS for 30 Days, #60 TAB Prov:KAYLEEN SIMON MD 11/20/17 Reported Medications Benzonatate* (Benzonatate*) 100 Mg Capsule, 100 MG PO TID PRN for COUGH, CAP 11/19/17 Losartan Potassium* (Losartan Potassium*) 25 Mg Tablet, 25 MG PO DAILY, TAB 09/14/16 Magnesium Oxide* (Mag-Oxide*) 400 Mg Tablet, 400 MG PO BID, TAB 09/14/16 Apixaban* (Eliquis*) 2.5 Mg Tablet, 2.5 MG PO BID, TAB 09/14/16 Calcium Carbonate (CALCIUM) 600 Mg Tablet, 600 MG PO, TAB 09/14/16 Gluc 2KCL/Chondr/Ap Hy/Hy Ac (GLUCOSAMINE & CHONDROITIN CAP) 1 Each Capsule, 1 EACH PO, CAP 09/14/16 Mu-Vits-Min Th/Lycopene/Lutein (CENTRUM SILVER TABLET) 1 Each Tablet, 1 EACH PO, TAB 09/14/16 Alprazolam* (Alprazolam*) 0.25 Mg Tablet, 0.25 MG PO TID PRN for ANXIETY, TAB 09/14/16 Atorvastatin Calcium* (Atorvastatin Calcium*) 20 Mg Tablet, 20 MG PO QHS, #30 TAB 09/14/16 Allergies Allergies: Coded Allergies: No Known Allergy (Unverified , 09/17/18) PMhx/Soc History of Surgery: Yes (pacemaker, colonoscopy) Anesthesia Reaction: No Hx Neurological Disorder: Yes (TIA) Hx Respiratory Disorders: Yes (asthma) Hx Cardiac Disorders: Yes (HTN, Afib ) Hx Psychiatric Problems: No Hx Miscellaneous Medical Probl: No Hx Alcohol Use: No Hx Substance Use: No Hx Tobacco Use: No Smoking Status: Never smoker FmHx Family History: diabetes Physical Exam Vitals Vital Signs Date Temp Pulse Resp B/P (MAP) Pulse Ox O2 O2 Flow FiO2 Time Delivery Rate 09/17/18 99.4 62 20 126/58 99 11:57 (80) Physical Exam Const: No acute distress Head: Atraumatic Eyes: Normal Conjunctiva ENT: Lower lip shows cracked skin but no significant swelling, tongue is normal in size, no stridor over the neck Neck: Full range of motion. No meningismus. Resp: Clear to auscultation bilaterally Cardio: Regular rate and rhythm, no murmurs Abd: Soft, non tender, non distended. Normal bowel sounds Skin: No petechiae or rashes Back: No midline or flank tenderness Ext: No cyanosis, or edema Neur: Awake and alert Psych: Normal Mood and Affect Procedures/MDM Patient is a an 82-year-old female who presents with complaint of lower lip swelling. The lip is not appreciably swollen but there is some cracking of the lower lip. The upper lip is normal. There is no sign of allergic reaction otherwise. The patient has no tongue swelling, uvular swelling, or stridor over the neck. I believe outpatient management is appropriate. She is well- appearing with stable vital signs. She will be given a prescription for hydrocortisone cream to put on the lip once a day. She can return for any worsening symptoms. She is not on an KELLIE inhibitor. She should follow-up with her primary doctor within 1 week. Departure Diagnosis: Primary Impression: Allergic reaction Encounter type: initial encounter Qualified Codes: T78.40XA - Allergy, unspecified, initial encounter Additional Impression: Contact dermatitis Contact dermatitis type: unspecified Contact dermatitis trigger: unspecified trigger Qualified Codes: L25.9 - Unspecified contact dermatitis, unspecified cause Condition: Fair Patient Instructions: First Aid: Allergic Reactions Referrals: Your doctor Additional Instructions: Call your primary care doctor TOMORROW for an appointment during the next 1 WEEK.Tell the elementary secretary that you were referred from this facility.See the doctor sooner or return here if your condition worsens before your appointment time. SANJUANITA FLAHERTY MD Sep 17, 2018 13:39
== END 2018-09-17 12:45 | disposition home or self-care (01) ==
LOC: FTE 11:55
DX: L25.9 Unspecified contact dermatitis, unspecified cause (principal); I10 Essential (primary) hypertension; J45.909 Unspecified asthma, uncomplicated; Z86.73 Personal history of transient ischemic attack (TIA), and cerebral infarction without residual deficits; Z79.01 Long term (current) use of anticoagulants; Z95.0 Presence of cardiac pacemaker
CPT/HCPCS: 99282

== ENCOUNTER 2018-09-21 20:39 | Inpatient (IN) | payer MEDICARE, OTHER ==
[~2018-09-21] VITALS: Ht 160 cm; Wt 49.4 kg
[~2018-09-21 20:39] MED LIST changes: +ACET-141 PO; +ACET325T33 PO; +ALEN70TA5 PO; +CARAS PO; +DOCU-144 PO; +HYDR28OI2 TP; +UDFER PO; +[UNRECOGNIZED DRUG - CODE] TOP
--- NOTE | 2018-09-21 22:08 | ERD ---
ER Documentation Chief Complaint Chief Complaint PRESSURE LIKE L SIDED CP RADIATES TO NECK & SOB X 2 HRS HAS PACEMAKER HPI This is an 82-year-old woman brought in by son for complaints of left-sided chest pain and pressure with shortness of breath and generalized dizziness. Patient states the chest discomfort lasted for about 30 minutes and got worse upon arrival. She states in the past for shortness of breath she has been brendan isauro with albuterol but denies history of COPD, but is requesting a dose of albuterol to help with her symptoms. Patient has had no cough, no fevers or chills, no vomiting or diarrhea, no loss of consciousness. Patient recently stopped using aspirin because her [employer] wants her to undergo Watchman procedure for chronic atrial fibrillation ROS All systems reviewed and are negative except as per history of present illness. Medications Home Meds Active Scripts Hydrocortisone Acetate (Hydrocortisone) 28 Gm Oint...g., 28 GM TP DAILY, #1 Prov:SANJUANITA FLAHERTY MD 09/17/18 Bismuth Subsalicylate (PINK BISMUTH) 262 Mg Tablet, 262 MG PO QID for 2 qid for 10 Days, #100 TAB Prov:KAYLEEN SIMON MD 11/20/17 Clarithromycin* (Clarithromycin*) 500 Mg Tablet, 500 MG PO BID for 10 Days, #20 TAB Prov:KAYLEEN SIMON MD 11/20/17 Amoxicillin* (Amoxicillin*) 500 Mg Cap, 500 MG PO BID for 2 caps bid for 10 Days, #40 CAP Prov:KAYLEEN SIMON MD 11/20/17 Pantoprazole* (Pantoprazole*) 40 Mg Tablet.dr, 40 MG PO BID for 60 Days, #120 TAB Prov:KAYLEEN SIMON MD 11/20/17 Sucralfate (Carafate) 1 Gm Tablet, 1 GM PO QID for 30 Days, #120 TAB For 1 month only Prov:KAYLEEN SIMON MD 11/20/17 Dronedarone Hydrochloride* (Multaq*) 400 Mg Tablet, 400 MG PO BID WITH MEALS for 30 Days, #60 TAB Prov:KAYLEEN SIMON MD 11/20/17 Reported Medications Benzonatate* (Benzonatate*) 100 Mg Capsule, 100 MG PO TID PRN for COUGH, CAP 11/19/17 Losartan Potassium* (Losartan Potassium*) 25 Mg Tablet, 25 MG PO DAILY, TAB 09/14/16 Magnesium Oxide* (Mag-Oxide*) 400 Mg Tablet, 400 MG PO BID, TAB 09/14/16 Apixaban* (Eliquis*) 2.5 Mg Tablet, 2.5 MG PO BID, TAB 09/14/16 Calcium Carbonate (CALCIUM) 600 Mg Tablet, 600 MG PO, TAB 09/14/16 Gluc 2KCL/Chondr/Ap Hy/Hy Ac (GLUCOSAMINE & CHONDROITIN CAP) 1 Each Capsule, 1 EACH PO, CAP 09/14/16 Mu-Vits-Min Th/Lycopene/Lutein (CENTRUM SILVER TABLET) 1 Each Tablet, 1 EACH PO, TAB 09/14/16 Alprazolam* (Alprazolam*) 0.25 Mg Tablet, 0.25 MG PO TID PRN for ANXIETY, TAB 09/14/16 Atorvastatin Calcium* (Atorvastatin Calcium*) 20 Mg Tablet, 20 MG PO QHS, #30 TAB 09/14/16 Allergies Allergies: Coded Allergies: No Known Allergy (Unverified , 09/17/18) PMhx/Soc Hypertension, atrial fibrillation History of Surgery: Yes (pacemaker, colonoscopy) Anesthesia Reaction: No Hx Neurological Disorder: Yes (TIA) Hx Respiratory Disorders: Yes (asthma) Hx Cardiac Disorders: Yes (HTN, Afib ) Hx Psychiatric Problems: No Hx Miscellaneous Medical Probl: No Hx Alcohol Use: No Hx Substance Use: No Hx Tobacco Use: No FmHx Family History: No diabetes Physical Exam Vitals Vital Signs Date Temp Pulse Resp B/P (MAP) Pulse Ox O2 O2 Flow FiO2 Time Delivery Rate 09/21/18 60 20 99 21 22:27 09/21/18 97.5 60 18 158/72 100 20:47 (100) Physical Exam GENERAL: Well-developed, well-nourished, well-hydrated, appears anxious, afebrile CARDIAC: Regular rate and rhythm, no murmurs rubs or gallops LUNGS: Clear bilaterally no wheezing crackles or stridor SKIN: Warm and dry to touch, no abrasions, contusions, or hematomas, no lacerations, no ecchymosis, no target lesions, and without ulcers EXTREMITIES: No clubbing cyanosis or edema, calves are bilaterally symmetrical, no Homans sign, no popliteal cord sign. Distal pulses equal and bilateral PSYCH: Normal affect without agitation or irritability Result Diagram: 09/21/185 09/21/182214 Results 24 hrs Laboratory Tests Test 09/21/18 22:15 White Blood Count 5.6 10^3/ul Red Blood Count 3.20 10^6/ul Hemoglobin 10.6 g/dl Hematocrit 30.7 % Mean Corpuscular Volume 95.9 fl Mean Corpuscular Hemoglobin 33.1 pg Mean Corpuscular Hemoglobin Concent 34.5 g/dl Red Cell Distribution Width 14.1 % Platelet Count 248 10^3/UL Mean Platelet Volume 9.0 fl Immature Granulocytes % 0.200 % Neutrophils % 56.5 % Lymphocytes % 30.5 % Monocytes % 11.0 % Eosinophils % 1.3 % Basophils % 0.5 % Nucleated Red Blood Cells % 0.0 /100WBC Immature Granulocytes # 0.010 10^3/ul Neutrophils # 3.2 10^3/ul Lymphocytes # 1.7 10^3/ul Monocytes # 0.6 10^3/ul Eosinophils # 0.1 10^3/ul Basophils # 0.0 10^3/ul Nucleated Red Blood Cells # 0.0 10^3/ul Prothrombin Time 11.8 Sec Prothrombin Time Ratio 0.9 INR International Normalized Ratio 0.86 Activated Partial Thromboplast Time 28.0 Sec Sodium Level 122 mmol/L Potassium Level 4.6 mmol/L Chloride Level 87 mmol/L Carbon Dioxide Level 26 mmol/L Anion Gap 9 Blood Urea Nitrogen 10 mg/dl Creatinine 0.66 mg/dl Est Glomerular Filtrat Rate mL/min mL/min Glucose Level 103 mg/dl Calcium Level 8.7 mg/dl Total Bilirubin 0.7 mg/dl Direct Bilirubin 0.00 mg/dl Indirect Bilirubin 0.7 mg/dl Aspartate Amino Transf (AST/SGOT) 42 IU/L Alanine Aminotransferase (ALT/SGPT) 33 IU/L Alkaline Phosphatase 48 IU/L Troponin I < 0.012 ng/ml B-Type Natriuretic Peptide 471 PG/ML Total Protein 7.3 g/dl Albumin 4.2 g/dl Globulin 3.10 g/dl Albumin/Globulin Ratio 1.35 Lipase 143 U/L Current Medications Medications Dose Sig/Leonela Start Time Status Last (Trade) Ordered Route PRN Stop Time Admin Dose Reason Admin Albuterol 5 mg ONCE STAT 8/1/19 DC 09/21/18 (Proventil INH 22:18 09/21/18 22:26 0.5% (Neb)) 22:19 Aspirin 162 mg ONCE ONCE 09/21/18 DC 09/21/18 (Aspirin) PO 22:30 09/21/18 22:28 22:31 Ondansetron 4 mg ONCE STAT 09/21/18 DC 09/21/18 HCl (Zofran IV 22:18 09/21/18 22:28 Inj) 22:19 Procedures/MDM IV line was established patient was placed on satellite project site monitor rhythm strip revealed a paced atrial rhythm at about 60 bpm with upright P and T waves. Patient was afebrile EKG performed, read by me revealed a normal sinus rhythm at 60 bpm, normal axis, narrow QRS complex, no concerning ST elevations or depressions noted 1 view chest x-ray performed, read by me revealed atelectatic changes bilaterall y and a pacemaker in the left chest, leads intact, no acute infiltrates, no pneumothorax. I administered aspirin 162 mg p.o. for cardioprotective measures, albuterol 5 mg via nebulizer, and Zofran 4 mg IV. CBC was unremarkable, electrolytes revealed hyponatremia at 122, liver function tests normal, troponin negative, BNP low Patient is without complaints of chest pain or shortness of breath at this time and vital signs are normal although given her presentation she will be admitted to telemetry setting. Departure Diagnosis: Primary Impression: Chest pain Chest pain type: unspecified Qualified Codes: R07.9 - Chest pain, unspecified Additional Impression: Acute hyponatremia Condition: SHIMON Jackson MD Sep 21, 2018 22:08
[2018-09-21] MEDS ORDERED: ONDANSETRON 4 MG INJ IV STA (22:18)
[2018-09-21] MEDS ORDERED: ALBUTEROL 0.5% (NEB) 2.5 MG/0.5 ML AMP INH STA (22:18)
[2018-09-21] MEDS ORDERED: ASPIRIN 81 MG TAB PO ONE (22:30)
[2018-09-22] MEDS ORDERED: ALPRAZOLAM 0.25 MG TAB PO ONE (01:30)
[2018-09-22 02:08] VITALS: BP 101/72; PULSE 64; RESP 17
[2018-09-22 02:15] VITALS: Ht 160 cm; Wt 49.4 kg
[2018-09-22] MEDS ORDERED: NITROGLYCERIN (SL) 0.4 MG TAB SL PRN (03:00)
[2018-09-22] MEDS ORDERED: ALBUTEROL/IPRATROPIUM (NEB) 3 ML AMP HHN PRN (03:00)
[2018-09-22] MEDS ORDERED: ONDANSETRON 4 MG INJ IV PRN (03:00)
[2018-09-22] MEDS ORDERED: ACETAMINOPHEN 500 MG TAB PO PRN (03:00)
[2018-09-22] MEDS ORDERED: NACL 0.9% 3 ML SYG IV SCH (03:00)
[2018-09-22] MEDS ORDERED: ACETAMINOPHEN 325 MG TAB PO PRN (03:00)
[2018-09-22 04:25] VITALS: BP 106/64; PULSE 60; RESP 19
--- NOTE | 2018-09-22 07:07 | HP ---
Date/Time of Note Date/Time of Note DATE: 09/22/18 TIME: 07:01 Assessment/Plan VTE Prophylaxis Pharmacological prophylaxis: heparin Lines/Catheters IV [facility] Saline Lock Urinary Cath still in place: No Assessment/Plan Assessment/Plan 1. Chest pain: Rule out ACS -Telemetry monitoring -Supplemental oxygen, statin. As needed nitro -Patient did receive aspirin in the ER. I did not order one because of history of gastritis with bleeding and patient was somehow worried about starting antiplatelet -Serial troponin -2D echo -Cardiology consult 2. Hyponatremia: Secondary to diarrhea -NS IVF -Check urine electrolytes and osmolality 3. Paroxysmal atrial fibrillation: Currently rate controlled 4. History of asthma: No sign of acute exacerbation. As needed bronchodilators 5. Hypertension: Continue home meds. Adjust as needed 6. Dyslipidemia: Continue statin 7. History of iron deficiency anemia: Continue ferrous sulfate 8. Pacemaker status 9. History of GI bleed and gastritis: This happened while patient was on Eliquis, which was stopped Result Diagram: 09/21/18 2215 09/21/18 2215 Results 24hrs Laboratory Tests Test 09/21/18 22:15 09/22/18 05:43 White Blood Count 5.6 # Pending Red Blood Count 3.20 L Pending Hemoglobin 10.6 #L Pending Hematocrit 30.7 L Pending Mean Corpuscular Volume 95.9 Pending Mean Corpuscular Hemoglobin 33.1 H Pending Mean Corpuscular Hemoglobin Concent 34.5 Pending Red Cell Distribution Width 14.1 Pending Platelet Count 248 Pending Mean Platelet Volume 9.0 Pending Immature Granulocytes % 0.200 Neutrophils % 56.5 Lymphocytes % 30.5 Monocytes % 11.0 Eosinophils % 1.3 Basophils % 0.5 Nucleated Red Blood Cells % 0.0 Immature Granulocytes # 0.010 Neutrophils # 3.2 Lymphocytes # 1.7 Monocytes # 0.6 Eosinophils # 0.1 Basophils # 0.0 Nucleated Red Blood Cells # 0.0 Prothrombin Time 11.8 L Prothrombin Time Ratio 0.9 INR International Normalized Ratio 0.86 Activated Partial Thromboplast Time 28.0 Sodium Level 122 L Potassium Level 4.6 Chloride Level 87 L Carbon Dioxide Level 26 Anion Gap 9 Blood Urea Nitrogen 10 Creatinine 0.66 Est Glomerular Filtrat Rate mL/min Glucose Level 103 Calcium Level 8.7 Total Bilirubin 0.7 Direct Bilirubin 0.00 Indirect Bilirubin 0.7 Aspartate Amino Transf (AST/SGOT) 42 Alanine Aminotransferase (ALT/SGPT) 33 Alkaline Phosphatase 48 Troponin I < 0.012 B-Type Natriuretic Peptide 471 H Total Protein 7.3 Albumin 4.2 Globulin 3.10 Albumin/Globulin Ratio 1.35 Lipase 143 HPI/ROS Admit Date/Time Admit Date/Time Sep 21, 2018 at 23:08 Hx of Present Illness Patient is an 82-year-old female with a history of hypertension, dyslipidemia, atrial fibrillation, probable asthma, GI bleed secondary to gastritis while on anticoagulation, iron deficiency anemia. Patient presents the ER complaining of chest pain and shortness of breath. Symptoms have been going on for about 3 days or so. She also complains of pain on the back of her neck. On further q uestioning, she reported intermittent watery diarrhea for the past 2 to 3 days. Denied abdominal pain, nausea or vomiting. On further questioning, patient also complains of dry lips and having a small wound on the lower part of her lips. When presented to the ER, her sodium was found to be 122, chloride 87. First troponin is negative and EKG without ST elevation. PMH/Family/Social Past Medical History Medical History: other (See HPI) Medications Current Medications IV Flush (NS 3 ml) 3 ml PER PROTOCOL IV ; Start 09/22/18 at 03:00 Ondansetron HCl (Zofran Inj) 4 mg Q6H PRN IV NAUSEA/VOMITING; Start 09/22/18 at 03:00 Nitroglycerin (Nitroglycerin (Sl Tab) 0.4 Mg) 1 tab Q5M PRN SL .CHEST PAIN; Start 09/22/18 at 03:00 Acetaminophen (Tylenol Tab) 650 mg Q6H PRN PO .PAIN 1-3 OR TEMP; Start 09/22/18 at 03:00 Albuterol/ Ipratropium (Duoneb) 3 ml Q2H RESP THERAPY PRN HHN SHORTNESS OF BREATH; Start 09/22/18 at 03:00 Acetaminophen (Tylenol Tab) 500 mg Q4H PRN PO MILD PAIN(1-3)OR ELEVATED TEMP; Start 09/22/18 at 03:00 Alprazolam (Xanax) 0.25 mg TID PRN PO ANXIETY; Start 09/22/18 at 03:00 Atorvastatin Calcium (Lipitor) 20 mg QHS PO ; Start 09/22/18 at 21:00 Dronedarone (Multaq) 400 mg BID WITH MEALS PO ; Start 09/22/18 at 08:00 Losartan Potassium (Cozaar) 25 mg DAILY PO ; Start 09/22/18 at 09:00 Magnesium Oxide (Mag-Ox 400) 400 mg BID PO ; Start 09/22/18 at 09:00 Coded Allergies: No Known Allergy (Unverified , 09/21/18) Past Surgical History Past Surgical Hx: other (See HPI) Family History Significant Family History: no pertinent family hx Social History Alcohol Use: none Smoking Status: Never smoker Drug Use: none Exam/Review of Systems Vital Signs Vitals Vital Signs Date Temp Pulse Resp B/P (MAP) Pulse Ox O2 O2 Flow FiO2 Time Delivery Rate 09/22/18 98.4 60 19 106/64 100 Nasal 04:25 (78) Cannula 09/22/18 2.0 27 02:30 Intake and Output 09/21/18 09/21/18 09/22/18 1515:00 23:00 07:00 IntakeIntake Total 50 ml BalanceBalance 50 ml Exam Constitutional: alert, oriented, well developed Head: normocephalic, atraumatic Eyes: EOMI, PERRL Respiratory: clear to auscultation, normal air movement Cardiovascular: regular rate and rhythm Gastrointestinal: soft Extremities: normal pulses MARTIN RODRIGUEZ MD Sep 22, 2018 07:06
[2018-09-22 07:14] VITALS: BP 138/64; PULSE 60; RESP 18
[2018-09-22] MEDS ORDERED: DIMETHICONE STICK TOP PRN (07:30)
[2018-09-22] MEDS: MAGNESIUM OXIDE 400 MG TAB PO SCH ×2 (08:28→21:37)
[2018-09-22] MEDS: DRONEDARONE HYDROCHLORIDE 400 MG TAB PO SCH ×2 (08:28→18:54)
[2018-09-22] MEDS: SOD CHLORIDE 0.9% 1,000 ML IV SCH ×2 (08:29→21:39)
[2018-09-22] MEDS: LOSARTAN 25 MG TAB PO SCH (08:29)
--- NOTE | 2018-09-22 11:03 | PN ---
Date/Time of Note Date/Time of Note DATE: 09/22/18 TIME: 10:56 Assessment/Plan VTE Prophylaxis Risk score (from Ns)>0 risk: 3 SCD applied (from Nsg): Yes Pharmacological prophylaxis: other Lines/Catheters IV Catheter Type (from [facility]): Saline Lock Urinary Cath still in place: No Assessment/Plan Hospital Course S: Patient tolerating diet, able to ambulate. Has less chest pain now. O: VS - see below PE: Constitutional: alert, oriented, well developed Head: normocephalic, atraumatic Eyes: EOMI, PERRL Respiratory: clear to auscultation, normal air movement Cardiovascular: regular rate and rhythm Gastrointestinal: soft Extremities: normal pulses, no lower extremity edema bilaterally Assessment/Plan: 82-year-old female who presented with: 1. Chest pain: Rule out ACS. First troponin is negative. -For now continue telemetry monitoring -Supplemental oxygen, statin. As needed nitro -Patient did receive aspirin in the ER. However admitting doctor did not order one because of history of gastritis with bleeding and patient was somehow worried about starting antiplatelet -Follow-up second and third serial troponin, and results of 2D echo -If symptoms worsen, consider cardiology consult 2. Hyponatremia: Secondary to diarrhea. Sodium was 122 on admission, now on repeat basic metabolic panel this morning, up to 130. Patient a symptomatic -For now continue NS IVF -Follow-up results of urine electrolytes and osmolality 3. Paroxysmal atrial fibrillation: Currently rate controlled 4. History of asthma: No sign of acute exacerbation. As needed bronchodilators 5. Hypertension: Continue home meds. Adjust as needed 6. Dyslipidemia: Continue statin 7. History of iron deficiency anemia: Continue ferrous sulfate 8. Pacemaker status 9. History of GI bleed and gastritis: This happened while patient was on Eliquis, which was stopped -Monitor Result Diagram: 09/22/18 0543 09/22/18 0543 Results 24hrs Laboratory Tests Test 09/21/18 22:15 09/22/18 05:15 09/22/18 05:43 White Blood Count 5.6 # 3.7 #L Red Blood Count 3.20 L 2.85 L Hemoglobin 10.6 #L 9.2 L Hematocrit 30.7 L 28.1 L Mean Corpuscular Volume 95.9 98.6 Mean Corpuscular Hemoglobin 33.1 H 32.3 Mean Corpuscular Hemoglobin Concent 34.5 32.7 Red Cell Distribution Width 14.1 14.5 Platelet Count 248 219 Mean Platelet Volume 9.0 9.1 Immature Granulocytes % 0.200 0.000 L Neutrophils % 56.5 46.8 Lymphocytes % 30.5 38.0 Monocytes % 11.0 12.6 H Eosinophils % 1.3 2.1 Basophils % 0.5 0.5 Nucleated Red Blood Cells % 0.0 0.0 Immature Granulocytes # 0.010 0.000 Neutrophils # 3.2 1.8 Lymphocytes # 1.7 1.4 Monocytes # 0.6 0.5 Eosinophils # 0.1 0.1 Basophils # 0.0 0.0 Nucleated Red Blood Cells # 0.0 0.0 Prothrombin Time 11.8 L Prothrombin Time Ratio 0.9 INR International Normalized Ratio 0.86 Activated Partial Thromboplast Time 28.0 Sodium Level 122 L 130 L Potassium Level 4.6 3.8 Chloride Level 87 L 95 L Carbon Dioxide Level 26 28 Anion Gap 9 7 Blood Urea Nitrogen 10 7 Creatinine 0.66 0.59 Est Glomerular Filtrat Rate mL/min Glucose Level 103 94 Calcium Level 8.7 8.0 L Total Bilirubin 0.7 0.6 Direct Bilirubin 0.00 0.00 Indirect Bilirubin 0.7 0.6 Aspartate Amino Transf (AST/SGOT) 42 31 Alanine Aminotransferase (ALT/SGPT) 33 31 Alkaline Phosphatase 48 35 L Troponin I < 0.012 B-Type Natriuretic Peptide 471 H Total Protein 7.3 6.3 # Albumin 4.2 3.2 #L Globulin 3.10 3.10 Albumin/Globulin Ratio 1.35 1.03 Lipase 143 Urine Osmolality 69 L Urine Random Sodium Urine Random Potassium < 9.7 L Hemoglobin A1c 5.3 Osmolality 263 L Magnesium Level 2.4 Triglycerides Level 33 Cholesterol Level 126 LDL Cholesterol, Calculated 59 HDL Cholesterol 60 Cholesterol/HDL Ratio 2.1 Thyroid Stimulating Hormone (TSH) 2.170 Exam/Review of Systems Exam Vitals Vital Signs Date Temp Pulse Resp B/P (MAP) Pulse Ox O2 O2 Flow FiO2 Time Delivery Rate 09/22/18 98.7 60 18 138/64 93 Nasal 2.0 07:14 (88) Cannula 09/22/18 27 02:30 Intake and Output 09/21/18 09/21/18 09/22/18 1515:00 23:00 07:00 IntakeIntake Total 50 ml BalanceBalance 50 ml Results Results 24hrs Laboratory Tests Test 09/21/18 22:15 09/22/18 05:15 09/22/18 05:43 White Blood Count 5.6 # 3.7 #L Red Blood Count 3.20 L 2.85 L Hemoglobin 10.6 #L 9.2 L Hematocrit 30.7 L 28.1 L Mean Corpuscular Volume 95.9 98.6 Mean Corpuscular Hemoglobin 33.1 H 32.3 Mean Corpuscular Hemoglobin Concent 34.5 32.7 Red Cell Distribution Width 14.1 14.5 Platelet Count 248 219 Mean Platelet Volume 9.0 9.1 Immature Granulocytes % 0.200 0.000 L Neutrophils % 56.5 46.8 Lymphocytes % 30.5 38.0 Monocytes % 11.0 12.6 H Eosinophils % 1.3 2.1 Basophils % 0.5 0.5 Nucleated Red Blood Cells % 0.0 0.0 Immature Granulocytes # 0.010 0.000 Neutrophils # 3.2 1.8 Lymphocytes # 1.7 1.4 Monocytes # 0.6 0.5 Eosinophils # 0.1 0.1 Basophils # 0.0 0.0 Nucleated Red Blood Cells # 0.0 0.0 Prothrombin Time 11.8 L Prothrombin Time Ratio 0.9 INR International Normalized Ratio 0.86 Activated Partial Thromboplast Time 28.0 Sodium Level 122 L 130 L Potassium Level 4.6 3.8 Chloride Level 87 L 95 L Carbon Dioxide Level 26 28 Anion Gap 9 7 Blood Urea Nitrogen 10 7 Creatinine 0.66 0.59 Est Glomerular Filtrat Rate mL/min Glucose Level 103 94 Calcium Level 8.7 8.0 L Total Bilirubin 0.7 0.6 Direct Bilirubin 0.00 0.00 Indirect Bilirubin 0.7 0.6 Aspartate Amino Transf (AST/SGOT) 42 31 Alanine Aminotransferase (ALT/SGPT) 33 31 Alkaline Phosphatase 48 35 L Troponin I < 0.012 B-Type Natriuretic Peptide 471 H Total Protein 7.3 6.3 # Albumin 4.2 3.2 #L Globulin 3.10 3.10 Albumin/Globulin Ratio 1.35 1.03 Lipase 143 Urine Osmolality 69 L Urine Random Sodium Urine Random Potassium < 9.7 L Hemoglobin A1c 5.3 Osmolality 263 L Magnesium Level 2.4 Triglycerides Level 33 Cholesterol Level 126 LDL Cholesterol, Calculated 59 HDL Cholesterol 60 Cholesterol/HDL Ratio 2.1 Thyroid Stimulating Hormone (TSH) 2.170 Medications Medication Current Medications IV Flush (NS 3 ml) 3 ml PER PROTOCOL IV ; Start 09/22/18 at 03:00 Ondansetron HCl (Zofran Inj) 4 mg Q6H PRN IV NAUSEA/VOMITING; Start 09/22/18 at 03:00 Nitroglycerin (Nitroglycerin (Sl Tab) 0.4 Mg) 1 tab Q5M PRN SL .CHEST PAIN; Start 09/22/18 at 03:00 Acetaminophen (Tylenol Tab) 650 mg Q6H PRN PO .PAIN 1-3 OR TEMP; Start 09/22/18 at 03:00 Albuterol/ Ipratropium (Duoneb) 3 ml Q2H RESP THERAPY PRN HHN SHORTNESS OF BREATH; Start 09/22/18 at 03:00 Acetaminophen (Tylenol Tab) 500 mg Q4H PRN PO MILD PAIN(1-3)OR ELEVATED TEMP; Start 09/22/18 at 03:00 Alprazolam (Xanax) 0.25 mg TID PRN PO ANXIETY; Start 09/22/18 at 03:00 Atorvastatin Calcium (Lipitor) 20 mg QHS PO ; Start 09/22/18 at 21:00 Dronedarone (Multaq) 400 mg BID WITH MEALS PO Last administered on 09/22/18 08:28; Admin Dose 400 MG; Start 09/22/18 at 08:00 Losartan Potassium (Cozaar) 25 mg DAILY PO Last administered on 09/22/18 08:29; Admin Dose 25 MG; Start 09/22/18 at 09:00 Magnesium Oxide (Mag-Ox 400) 400 mg BID PO Last administered on 09/22/18 08:28; Admin Dose 400 MG; Start 09/22/18 at 09:00 Sodium Chloride 1,000 ml @ 100 mls/hr Q10H IV Last administered on 09/22/18 08:29; Admin Dose 100 MLS/HR; Start 09/22/18 at 07:30 Dimethicone (Blistex Lip [place]) 1 applic Q4H PRN TOP Dry lips; Start 09/22/18 at 07:30 YONI FLORES Sep 22, 2018 11:03
[2018-09-22 11:41] VITALS: BP 122/57; PULSE 60; RESP 18
--- NOTE | 2018-09-22 15:31 | RADRPT ---
Echocardiogram Report Patient Name: BK QUARLESPatient ID: [id number] : 10-10-1936 (82y 10m)Study Date: 09/22/2018 11:24:15 AM Gender: FAccession #: [id number] Tech: [place] Location: [facility] Ref.Physician: YONI FLORES Height(Cm): BSA: Weight(Kg): Quality: AdequateOrder Physician: YONI FLORES Account #: Procedures: Echocardiographic Report: Transthoracic echocardiogram with complete 2D, M-Mode, and doppler examination. Indications: Chest Pain. Measurements: 2D/M Mode Doppler Measurement Value Normal Range Measurement Value Normal Range LVIDd 2D 4.0 [ 3.8 - 5.2 ] cm AV Peak Noah 1.9 [ 100.0 - 170.0 ] cm/sec LVIDs 2D 2.2 [ 2.2 - 3.5 ] cm AV Peak PG 14.0 [ 2.0 - 9.0 ] mmHg LVPWd 2D 0.8 [ 0.6 - 0.9 ] cm AI Peak PG 56.0 mmHg IVSd 2D 0.8 [ 0.6 - 0.9 ] cm AI Peak Noah 3.7 cm/sec AoR Diam 2D 1.9 [ 2.3 - 3.1 ] cm AI PHT 659.0 msec EDV 2D 70.4 [ 46.0 - 106.0 ] ml LVOT Peak Noah 1.0 [ 70.0 - 110.0 ] cm/sec ESV 2D 16.4 [ 14.0 - 42.0 ] ml LVOT Peak PG 4.0 [ 2.0 - 6.0 ] mmHg EF 2D 76.7 [ 54.0 - 74.0 ] percent MV E Peak Noah 0.6 [ 60.0 - 130.0 ] cm/sec LA Dimen 2D 3.0 [ 2.7 - 3.8 ] cm MV A Peak Noah 0.4 [ 100.0 - 120.0 ] cm/sec MV E/A 1.4 [ 0.8 - 1.5 ] ratio MV Decel Time 162 [ 104 - 258 ] msec Lat E` Noah 0.1 [ 10.0 - 15.0 ] cm/sec Lateral E/E` 5.4 [ 1.0 - 2.0 ] ratio Med E` Noah 0.1 cm/sec MV E/A 1.4 [ 0.8 - 1.5 ] ratio TR Peak Noah 2.5 [ 100.0 - 280.0 ] cm/sec TR Peak PG 25.0 mmHg RVSP 28.0 [ 10.0 - 36.0 ] mmHg RA Pressure 3.0 mmHg Findings: Left Ventricle: Normal left ventricular systolic function. Normal left ventricular cavity size. Normal left ventricular wall thickness. Ejection fraction is visually estimated at 65 %. Abnormal Diastolic Function. Right Ventricle: Normal right ventricular size. Normal right ventricular systolic function. Linear artifact in right ventricle suggestive of catheter, pacer lead, or ICD lead. Left Atrium: The left atrium is normal in size. Right Atrium: There is mild enlargement of right atrium. Mitral Valve: Mitral valve leaflets appear mildly thickened. Mild mitral annular calcification. Trace mitral regurgitation. Aortic Valve: No hemodynamically significant aortic stenosis by doppler. Aortic cusps appear mildly calcified. Mild aortic valve regurgitation. Tricuspid Valve: Normal appearance of the tricuspid valve. The estimated Peak RVSP is 28 mmHg. There is moderate tricuspid regurgitation. Pulmonic Valve: Pulmonic valve not well visualized. Pericardium: Normal pericardium with no significant pericardial effusion. Aorta: Normal aortic root. IVC: Normal size and normal respiratory collapse consistent with normal right atrial pressure. Conclusions: Normal left ventricular systolic function. Normal left ventricular cavity size. Normal left ventricular wall thickness. Ejection fraction is visually estimated at 65 %. Abnormal Diastolic Function. Normal right ventricular size. Normal right ventricular systolic function. Linear artifact in right ventricle suggestive of catheter, pacer lead, or ICD lead. The left atrium is normal in size. There is mild enlargement of right atrium. Trace mitral regurgitation. No hemodynamically significant aortic stenosis by doppler. Mild aortic valve regurgitation. The estimated Peak RVSP is 28 mmHg. There is moderate tricuspid regurgitation. Normal pericardium with no significant pericardial effusion. Electronically Signed By: Thomas Alanis 2018-09-22 15:30:38 PDT
[2018-09-22 15:37] VITALS: BP 92/54; PULSE 60; RESP 18
[2018-09-22 20:07] VITALS: BP 113/54; PULSE 60; RESP 17
[2018-09-22] MEDS: ATORVASTATIN 20 MG TAB PO SCH (21:37)
[2018-09-23 08:13] VITALS: BP 145/63; PULSE 68; RESP 18
--- NOTE | 2018-09-23 09:27 | PN ---
Date/Time of Note Date/Time of Note DATE: 09/23/18 TIME: 09:19 Assessment/Plan VTE Prophylaxis Risk score (from Ns)>0 risk: 3 SCD applied (from Ns): Yes Pharmacological prophylaxis: other Lines/Catheters IV Catheter Type (from [facility]): Saline Lock Urinary Cath still in place: No Assessment/Plan Hospital Course S: Patient denies chest pain, but does complain of some dark stools. O: VS - see below PE: Constitutional: alert, oriented, well developed Head: normocephalic, atraumatic Eyes: EOMI, PERRL Respiratory: clear to auscultation, normal air movement Cardiovascular: regular rate and rhythm Gastrointestinal: soft Extremities: normal pulses, no lower extremity edema bilaterally Assessment/Plan: 82-year-old female who presented with: 1. Chest pain: Patient has ruled out for ACS- troponins are negative x3. -For now continue telemetry monitoring -Supplemental oxygen, statin. As needed nitro 2. Hyponatremia: Resolved now, likely secondary to diarrhea. -For now continue NS IVF -Follow-up results of urine electrolytes and osmolality 3. Paroxysmal atrial fibrillation: Currently rate controlled 4. History of asthma: No sign of acute exacerbation. As needed bronchodilators 5. Hypertension: Continue home meds. Adjust as needed 6. Dyslipidemia: Continue statin 7. History of iron deficiency anemia: Continue ferrous sulfate 8. Pacemaker status 9. History of GI bleed and gastritis: This happened while patient was on Eliquis, which was stopped. However complaining of dark stools. Hemoglobin has been stable -Monitor,, follow-up results of occult test. Result Diagram: 09/23/18 0523 09/23/18 0523 Results 24hrs Laboratory Tests Test 09/22/18 11:21 09/22/18 17:54 09/23/18 05:23 Troponin I < 0.012 < 0.012 White Blood Count 3.9 L Red Blood Count 3.40 L Hemoglobin 11.4 #L Hematocrit 34.3 #L Mean Corpuscular Volume 100.9 Mean Corpuscular Hemoglobin 33.5 H Mean Corpuscular Hemoglobin Concent 33.2 Red Cell Distribution Width 15.0 H Platelet Count 228 Mean Platelet Volume 10.2 Immature Granulocytes % 0.300 Neutrophils % 46.6 Lymphocytes % 38.9 Monocytes % 9.8 Eosinophils % 3.1 Basophils % 1.3 Nucleated Red Blood Cells % 0.0 Immature Granulocytes # 0.010 Neutrophils # 1.8 Lymphocytes # 1.5 Monocytes # 0.4 Eosinophils # 0.1 Basophils # 0.1 Nucleated Red Blood Cells # 0.0 Sodium Level 133 L Potassium Level 4.8 Chloride Level 98 Carbon Dioxide Level 29 Anion Gap 6 Blood Urea Nitrogen 8 Creatinine 0.60 Est Glomerular Filtrat Rate mL/min Glucose Level 81 Calcium Level 8.6 Phosphorus Level 3.7 Magnesium Level 2.3 Exam/Review of Systems Exam Vitals Vital Signs Date Temp Pulse Resp B/P (MAP) Pulse Ox O2 O2 Flow FiO2 Time Delivery Rate 09/23/18 98.7 68 18 145/63 92 08:13 (90) 09/22/18 Nasal 2.0 21:00 Cannula 09/22/18 27 02:30 Intake and Output 09/22/18 09/22/18 09/23/18 1515:00 23:00 07:00 IntakeIntake Total 600 ml BalanceBalance 600 ml Results Results 24hrs Laboratory Tests Test 09/22/18 11:21 09/22/18 17:54 09/23/18 05:23 Troponin I < 0.012 < 0.012 White Blood Count 3.9 L Red Blood Count 3.40 L Hemoglobin 11.4 #L Hematocrit 34.3 #L Mean Corpuscular Volume 100.9 Mean Corpuscular Hemoglobin 33.5 H Mean Corpuscular Hemoglobin Concent 33.2 Red Cell Distribution Width 15.0 H Platelet Count 228 Mean Platelet Volume 10.2 Immature Granulocytes % 0.300 Neutrophils % 46.6 Lymphocytes % 38.9 Monocytes % 9.8 Eosinophils % 3.1 Basophils % 1.3 Nucleated Red Blood Cells % 0.0 Immature Granulocytes # 0.010 Neutrophils # 1.8 Lymphocytes # 1.5 Monocytes # 0.4 Eosinophils # 0.1 Basophils # 0.1 Nucleated Red Blood Cells # 0.0 Sodium Level 133 L Potassium Level 4.8 Chloride Level 98 Carbon Dioxide Level 29 Anion Gap 6 Blood Urea Nitrogen 8 Creatinine 0.60 Est Glomerular Filtrat Rate mL/min Glucose Level 81 Calcium Level 8.6 Phosphorus Level 3.7 Magnesium Level 2.3 Medications Medication Current Medications IV Flush (NS 3 ml) 3 ml PER PROTOCOL IV ; Start 09/22/18 at 03:00 Ondansetron HCl (Zofran Inj) 4 mg Q6H PRN IV NAUSEA/VOMITING; Start 09/22/18 at 03:00 Nitroglycerin (Nitroglycerin (Sl Tab) 0.4 Mg) 1 tab Q5M PRN SL .CHEST PAIN; Start 09/22/18 at 03:00 Acetaminophen (Tylenol Tab) 650 mg Q6H PRN PO .PAIN 1-3 OR TEMP; Start 09/22/18 at 03:00 Albuterol/ Ipratropium (Duoneb) 3 ml Q2H RESP THERAPY PRN HHN SHORTNESS OF BREATH; Start 09/22/18 at 03:00 Acetaminophen (Tylenol Tab) 500 mg Q4H PRN PO MILD PAIN(1-3)OR ELEVATED TEMP; Start 09/22/18 at 03:00 Alprazolam (Xanax) 0.25 mg TID PRN PO ANXIETY; Start 09/22/18 at 03:00 Atorvastatin Calcium (Lipitor) 20 mg QHS PO Last administered on 09/22/18 21:37; Admin Dose 20 MG; Start 09/22/18 at 21:00 Dronedarone (Multaq) 400 mg BID WITH MEALS PO Last administered on 09/22/18 18:54; Admin Dose 400 MG; Start 09/22/18 at 08:00 Losartan Potassium (Cozaar) 25 mg DAILY PO Last administered on 09/22/18 08:29; Admin Dose 25 MG; Start 09/22/18 at 09:00 Magnesium Oxide (Mag-Ox 400) 400 mg BID PO Last administered on 09/22/18 21:37; Admin Dose 400 MG; Start 09/22/18 at 09:00 Sodium Chloride 1,000 ml @ 75 mls/hr [id number] IV Last administered on 09/22/18 21:39; Admin Dose 75 MLS/HR; Start 09/22/18 at 07:30 Dimethicone (Blistex Lip [place]) 1 applic Q4H PRN TOP Dry lips; Start 09/22/18 at 07:30 Pantoprazole (Protonix Tab) 40 mg DAILY@06 PO ; Start 09/23/18 at 09:30; Status YONI GRAHAM Sep 23, 2018 09:27
[2018-09-23] MEDS: LOSARTAN 25 MG TAB PO SCH (10:53)
[2018-09-23] MEDS: PANTOPRAZOLE (EC) 40 MG TAB PO SCH (10:53)
[2018-09-23] MEDS: MAGNESIUM OXIDE 400 MG TAB PO SCH ×2 (10:53→21:19)
[2018-09-23] MEDS: DRONEDARONE HYDROCHLORIDE 400 MG TAB PO SCH ×2 (10:53→17:43)
[2018-09-23] MEDS: SOD CHLORIDE 0.9% 1,000 ML IV SCH (10:54)
[2018-09-23 11:30] VITALS: BP 194/77; PULSE 60; RESP 18
[2018-09-23 15:51] VITALS: BP 135/61; PULSE 60; RESP 18
[2018-09-23 19:55] VITALS: BP 145/66; PULSE 60; RESP 19
[2018-09-23] MEDS: ATORVASTATIN 20 MG TAB PO SCH (21:18)
[2018-09-24] VITALS (7 sets, daily range): BP systolic 91–140; BP diastolic 49–62; PULSE 60–69; RESP 17–19
[2018-09-24] MEDS: ALPRAZOLAM 0.25 MG TAB PO PRN (01:42)
[2018-09-24] MEDS: PANTOPRAZOLE (EC) 40 MG TAB PO SCH (06:50)
[2018-09-24] MEDS: SOD CHLORIDE 0.9% 1,000 ML IV SCH ×2 (06:50→12:22)
[2018-09-24] MEDS: MAGNESIUM OXIDE 400 MG TAB PO SCH ×2 (08:57→20:47)
[2018-09-24] MEDS: DRONEDARONE HYDROCHLORIDE 400 MG TAB PO SCH ×2 (08:57→17:14)
[2018-09-24] MEDS: LOSARTAN 25 MG TAB PO SCH (08:58)
--- NOTE | 2018-09-24 12:48 | PN ---
Date/Time of Note Date/Time of Note DATE: 09/24/18 TIME: 12:46 Assessment/Plan VTE Prophylaxis Risk score (from Ns)>0 risk: 3 SCD applied (from Ns): Yes Pharmacological prophylaxis: NA/contraindicated Pharm contraindication: bleeding Lines/Catheters IV Catheter Type (from [facility]): Saline Lock Urinary Cath still in place: No Assessment/Plan Hospital Course S: Patient tolerating diet, waiting to be seen by GI team since her stool occult test is positive. No present signs of any upper or lower GI bleeding noted. O: VS - see below PE: Constitutional: alert, oriented, well developed Head: normocephalic, atraumatic Eyes: EOMI, PERRL Respiratory: clear to auscultation, normal air movement Cardiovascular: regular rate and rhythm Gastrointestinal: soft Extremities: normal pulses, no lower extremity edema bilaterally Assessment/Plan: 82-year-old female who presented with: 1. Chest pain: Patient has ruled out for ACS- troponins are negative x3. -For now continue telemetry monitoring -Supplemental oxygen, statin. As needed nitro 2. Hyponatremia: Resolved now, likely secondary to diarrhea. -For now continue NS IVF -Follow-up results of urine electrolytes and osmolality 3. History of GI bleed and gastritis: Again stool occult test is positive this admission, but hemoglobin has been stable. Per family member patient had EGD and colonoscopy performed 1 year ago at [facility], found with GI ulcer at that time. At that time her Eliquis was stopped, which she was taking for her atrial fibrillation. -Again hold all anticoagulants, follow recommendation from GI team is been consulted. Patient may benefit from EGD and colonoscopy this admission, but we will discuss with them for final plan on this. 4. Paroxysmal atrial fibrillation: Currently rate controlled 5. History of asthma: No sign of acute exacerbation. As needed bronchodilators 6. Hypertension: Continue home meds. Adjust as needed 7. Dyslipidemia: Continue statin 8. History of iron deficiency anemia: Continue ferrous sulfate 9. Pacemaker status: Stable, monitor heart rate on telemetry Result Diagram: 09/23/1852209/23/18522 Exam/Review of Systems Exam Vitals Vital Signs Date Temp Pulse Resp B/P (MAP) Pulse Ox O2 O2 Flow FiO2 Time Delivery Rate 09/24/18 98.1 60 17 94/52 (66) 98 12:02 09/24/18 Nasal 2.0 08:00 Cannula 09/22/18 27 02:30 Intake and Output 09/23/18 09/23/18 09/24/18 1515:00 23:00 07:00 IntakeIntake Total 480 ml 120 ml BalanceBalance 480 ml 120 ml Medications Medication Current Medications IV Flush (NS 3 ml) 3 ml PER PROTOCOL IV ; Start 09/22/18 at 03:00 Ondansetron HCl (Zofran Inj) 4 mg Q6H PRN IV NAUSEA/VOMITING; Start 09/22/18 at 03:00 Nitroglycerin (Nitroglycerin (Sl Tab) 0.4 Mg) 1 tab Q5M PRN SL .CHEST PAIN; Start 09/22/18 at 03:00 Acetaminophen (Tylenol Tab) 650 mg Q6H PRN PO .PAIN 1-3 OR TEMP; Start 09/22/18 at 03:00 Albuterol/ Ipratropium (Duoneb) 3 ml Q2H RESP THERAPY PRN HHN SHORTNESS OF BREATH; Start 09/22/18 at 03:00 Acetaminophen (Tylenol Tab) 500 mg Q4H PRN PO MILD PAIN(1-3)OR ELEVATED TEMP; Start 09/22/18 at 03:00 Alprazolam (Xanax) 0.25 mg TID PRN PO ANXIETY Last administered on 09/24/18at 01:42; Admin Dose 0.25 MG; Start 09/22/18 at 03:00 Atorvastatin Calcium (Lipitor) 20 mg QHS PO Last administered on 09/23/18 21:18; Admin Dose 20 MG; Start 09/22/18 at 21:00 Dronedarone (Multaq) 400 mg BID WITH MEALS PO Last administered on 09/24/18 08:57; Admin Dose 400 MG; Start 09/22/18 at 08:00 Losartan Potassium (Cozaar) 25 mg DAILY PO Last administered on 09/24/18 08:58; Admin Dose 25 MG; Start 09/22/18 at 09:00 Magnesium Oxide (Mag-Ox 400) 400 mg BID PO Last administered on 09/24/18 08:57; Admin Dose 400 MG; Start 09/22/18 at 09:00 Sodium Chloride 1,000 ml @ 75 mls/hr [id number] IV Last administered on 09/24/18at 12:22; Admin Dose 75 MLS/HR; Start 09/22/18 at 07:30 Dimethicone (Blistex Lip [place]) 1 applic Q4H PRN TOP Dry lips; Start 09/22/18 at 07:30 Pantoprazole (Protonix Tab) 40 mg DAILY@06 PO Last administered on 09/24/18at 06:50; Admin Dose 40 MG; Start 09/23/18 at 09:30 YONI FLORES Sep 24, 2018 12:48
--- NOTE | 2018-09-24 16:11 | CONS ---
Assessment/Plan Assessment/Plan Assessment/Plan (Daily) Assessment: Anemia/Melena EGD 11/18/17 1. Hemorrhagic gastritis in the antrum -No active bleeding 2. Small hiatal hernia 3. Otherwise normal EGD Abdominal pain Atrial fibrillation -Post pacemaker Hypertension Chest pain, ACS ruled out Plan: Plan for upper endoscopy tomorrow. Discussed with patient and she would like to proceed with upper endoscopy during this hospitalization. Benefits, alternatives, and risks of procedure discussed with patient and she is agreeable to proceed. Continue protonix BID Carfate 1g QID NPO after midnight Monitor H/H, transfuse for Hgb less than 7.5 Patient seen in collaboration with Dr. Turner CC: CARLIN TURNER MD ; Consultation Date/Type/Reason Admit Date/Time Sep 21, 2018 at 23:08 Date of Consultation: Sep 24, 2018 Type of Consult gastroenterology Reason for Consultation anemia, positive occult blood stools Requesting Provider: YONI FLORES Date/Time of Note DATE: 09/24/18 TIME: 15:36 Hx of Present Illness 82 y/o woman with a history of a-fib on Eliquis, stopped due to upper GI bleeding, gastritis, HTN, iron deficiency anemia, who was admitted to chest pain and shortness of breath, suspected ACS though ruled out. She denies any abdom inal pain, nausea or vomiting, fevers. She reports she has been having dark stools since admission the last 2 days. A stool for occult blood was checked and was positive. She last had an upper endoscopy 10/2017 which showed hemorrhagic gastritis though no active bleeding. She was treated with protonix, carafate, and amoxicillin. She follows up with an outpatient vocational childcare teacher in [place] Dr. Michael Dinh. She had a colonoscopy about 3 years ago. She is scheduled for a watchman device for her a-fib in the near future. A 10 point review of systems is otherwise negative except for the above HPI. Past Medical History Medical History: other (See HPI) Home Meds Active Scripts Hydrocortisone Acetate (Hydrocortisone) 28 Gm Oint...g., 28 GM TP DAILY, #1 Prov:SANJUANITA FLAHERTY MD 09/17/18 Dronedarone Hydrochloride* (Multaq*) 400 Mg Tablet, 400 MG PO BID WITH MEALS for 30 Days, #60 TAB Prov:KAYLEEN SIMON MD 11/20/17 Reported Medications Acetaminophen* (Acetaminophen*) 500 MG Extra Strength Tablet, 500 MG PO Q4H PRN for PAIN AND OR ELEVATED TEMP, TAB 09/21/18 Alendronate Sodium* (Fosamax*) 70 Mg Tablet, 70 MG PO Q7D for every tuesday09/21/18 Losartan Potassium* (Losartan Potassium*) 25 Mg Tablet, 25 MG PO DAILY, TAB 09/14/16 Magnesium Oxide* (Mag-Oxide*) 400 Mg Tablet, 400 MG PO BID, TAB 09/14/16 Calcium Carbonate (CALCIUM) 600 Mg Tablet, 600 MG PO, TAB 09/14/16 Gluc 2KCL/Chondr/Ap Hy/Hy Ac (GLUCOSAMINE & CHONDROITIN CAP) 1 Each Capsule, 1 EACH PO, CAP 09/14/16 Mu-Vits-Min Th/Lycopene/Lutein (CENTRUM SILVER TABLET) 1 Each Tablet, 1 EACH PO, TAB 09/14/16 Alprazolam* (Alprazolam*) 0.25 Mg Tablet, 0.25 MG PO TID PRN for ANXIETY, TAB 09/14/16 Atorvastatin Calcium* (Atorvastatin Calcium*) 20 Mg Tablet, 20 MG PO QHS, #30 TAB 09/14/16 Discontinued Reported Medications Benzonatate* (Benzonatate*) 100 Mg Capsule, 100 MG PO TID PRN for COUGH, CAP 11/19/17 Apixaban* (Eliquis*) 2.5 Mg Tablet, 2.5 MG PO BID, TAB 09/14/16 Discontinued Scripts Bismuth Subsalicylate (PINK BISMUTH) 262 Mg Tablet, 262 MG PO QID for 2 qid for 10 Days, #100 TAB Prov:KAYLEEN SIMON MD 11/20/17 Clarithromycin* (Clarithromycin*) 500 Mg Tablet, 500 MG PO BID for 10 Days, #20 TAB Prov:KAYLEEN SIMON MD 11/20/17 Amoxicillin* (Amoxicillin*) 500 Mg Cap, 500 MG PO BID for 2 caps bid for 10 Days, #40 CAP Prov:KAYLEEN SIMON MD 11/20/17 Pantoprazole* (Pantoprazole*) 40 Mg Tablet.dr, 40 MG PO BID for 60 Days, #120 TAB Prov:KAYLEEN SIMON MD 11/20/17 Sucralfate (Carafate) 1 Gm Tablet, 1 GM PO QID for 30 Days, #120 TAB For 1 month only Prov:KAYLEEN SIMON MD 11/20/17 Medications Current Medications IV Flush (NS 3 ml) 3 ml PER PROTOCOL IV ; Start 09/22/18 at 03:00 Ondansetron HCl (Zofran Inj) 4 mg Q6H PRN IV NAUSEA/VOMITING; Start 09/22/18 at 03:00 Nitroglycerin (Nitroglycerin (Sl Tab) 0.4 Mg) 1 tab Q5M PRN SL .CHEST PAIN; Start 09/22/18 at 03:00 Acetaminophen (Tylenol Tab) 650 mg Q6H PRN PO .PAIN 1-3 OR TEMP; Start 09/22/18 at 03:00 Albuterol/ Ipratropium (Duoneb) 3 ml Q2H RESP THERAPY PRN HHN SHORTNESS OF BREATH; Start 09/22/18 at 03:00 Acetaminophen (Tylenol Tab) 500 mg Q4H PRN PO MILD PAIN(1-3)OR ELEVATED TEMP; Start 09/22/18 at 03:00 Alprazolam (Xanax) 0.25 mg TID PRN PO ANXIETY Last administered on 09/24/18 01:42; Admin Dose 0.25 MG; Start 09/22/18 at 03:00 Atorvastatin Calcium (Lipitor) 20 mg QHS PO Last administered on 09/23/18 21:18; Admin Dose 20 MG; Start 09/22/18 at 21:00 Dronedarone (Multaq) 400 mg BID WITH MEALS PO Last administered on 09/24/18 08:57; Admin Dose 400 MG; Start 09/22/18 at 08:00 Losartan Potassium (Cozaar) 25 mg DAILY PO Last administered on 09/24/18 08:58; Admin Dose 25 MG; Start 09/22/18 at 09:00 Magnesium Oxide (Mag-Ox 400) 400 mg BID PO Last administered on 09/24/18 08:57; Admin Dose 400 MG; Start 09/22/18 at 09:00 Sodium Chloride 1,000 ml @ 75 mls/hr [id number] IV Last administered on 09/24/18 12:22; Admin Dose 75 MLS/HR; Start 09/22/18 at 07:30 Dimethicone (Blistex Lip [place]) 1 applic Q4H PRN TOP Dry lips; Start 09/22/18 at 07:30 Pantoprazole (Protonix Tab) 40 mg DAILY@06 PO Last administered on 09/24/18at 06:50; Admin Dose 40 MG; Start 09/23/18 at 09:30 Allergies: Coded Allergies: No Known Allergy (Unverified , 09/21/18) Past Surgical History Past Surgical Hx: other (See HPI) Social History Alcohol Use: none Smoking Status: Never smoker Drug Use: none Exam/Review of Systems Exam Vitals Vital Signs Date Temp Pulse Resp B/P (MAP) Pulse Ox O2 O2 Flow FiO2 Time Delivery Rate 09/24/18 98.1 60 17 94/52 (66) 98 12:02 09/24/18 Nasal 2.0 08:00 Cannula 09/22/18 27 02:30 Intake and Output 09/23/18 09/23/18 09/24/18 1515:00 23:00 07:00 IntakeIntake Total 480 ml 120 ml BalanceBalance 480 ml 120 ml Constitutional: alert, oriented Psych: no complaints Head: normocephalic, atraumatic Eyes: nl conjunctiva, EOMI ENMT: nl external ears & nose Neck: supple Respiratory: clear to auscultation Cardiovascular: regular rate and rhythm, nl pulses Gastrointestinal: soft, nl liver, spleen, non-tender Musculoskeletal: nl extremities to inspection Extremities: normal pulses Neurological: FUEL BUYER II-XII intact, nl mental status Results Result Diagram: 09/24/18 1313 09/24/18 1313 Results 24hrs Laboratory Tests Test 09/24/18 13:13 White Blood Count 4.2 L Red Blood Count 3.24 L Hemoglobin 10.7 L Hematocrit 32.7 L Mean Corpuscular Volume 100.9 Mean Corpuscular Hemoglobin 33.0 Mean Corpuscular Hemoglobin Concent 32.7 Red Cell Distribution Width 14.7 H Platelet Count 256 Mean Platelet Volume 8.7 Immature Granulocytes % 0.200 Neutrophils % 60.6 Lymphocytes % 26.3 Monocytes % 10.0 Eosinophils % 2.4 Basophils % 0.5 Nucleated Red Blood Cells % 0.0 Immature Granulocytes # 0.010 Neutrophils # 2.6 Lymphocytes # 1.1 Monocytes # 0.4 Eosinophils # 0.1 Basophils # 0.0 Nucleated Red Blood Cells # 0.0 Sodium Level 130 L Potassium Level 4.1 Chloride Level 93 L Carbon Dioxide Level 28 Anion Gap 9 Blood Urea Nitrogen 15 Creatinine 0.88 Est Glomerular Filtrat Rate mL/min Glucose Level 100 Calcium Level 9.0 Medications Medication Current Medications IV Flush (NS 3 ml) 3 ml PER PROTOCOL IV ; Start 09/22/18 at 03:00 Ondansetron HCl (Zofran Inj) 4 mg Q6H PRN IV NAUSEA/VOMITING; Start 09/22/18 at 03:00 Nitroglycerin (Nitroglycerin (Sl Tab) 0.4 Mg) 1 tab Q5M PRN SL .CHEST PAIN; Start 09/22/18 at 03:00 Acetaminophen (Tylenol Tab) 650 mg Q6H PRN PO .PAIN 1-3 OR TEMP; Start 09/22/18 at 03:00 Albuterol/ Ipratropium (Duoneb) 3 ml Q2H RESP THERAPY PRN HHN SHORTNESS OF BREATH; Start 09/22/18 at 03:00 Acetaminophen (Tylenol Tab) 500 mg Q4H PRN PO MILD PAIN(1-3)OR ELEVATED TEMP; Start 09/22/18 at 03:00 Alprazolam (Xanax) 0.25 mg TID PRN PO ANXIETY Last administered on 09/24/18 01:42; Admin Dose 0.25 MG; Start 09/22/18 at 03:00 Atorvastatin Calcium (Lipitor) 20 mg QHS PO Last administered on 09/23/18 21:18; Admin Dose 20 MG; Start 09/22/18 at 21:00 Dronedarone (Multaq) 400 mg BID WITH MEALS PO Last administered on 09/24/18 08:57; Admin Dose 400 MG; Start 09/22/18 at 08:00 Losartan Potassium (Cozaar) 25 mg DAILY PO Last administered on 09/24/18 08:58; Admin Dose 25 MG; Start 09/22/18 at 09:00 Magnesium Oxide (Mag-Ox 400) 400 mg BID PO Last administered on 09/24/18 08:57; Admin Dose 400 MG; Start 09/22/18 at 09:00 Sodium Chloride 1,000 ml @ 75 mls/hr [id number] IV Last administered on 8/4/19at 12:22; Admin Dose 75 MLS/HR; Start 09/22/18 at 07:30 Dimethicone (Blistex Lip [place]) 1 applic Q4H PRN TOP Dry lips; Start 09/22/18 at 07:30 Pantoprazole (Protonix Tab) 40 mg DAILY@06 PO Last administered on 09/24/18at 06:50; Admin Dose 40 MG; Start 09/23/18 at 09:30 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
[2018-09-24] MEDS: SUCRALFATE (100 MG/ML) 10ML CUP PO SCH ×2 (17:14→20:46)
[2018-09-24] MEDS: ATORVASTATIN 20 MG TAB PO SCH (20:47)
[2018-09-25] VITALS (13 sets, daily range): BP systolic 86–150; BP diastolic 44–70; PULSE 58–60; RESP 17–39
[2018-09-25] MEDS: SOD CHLORIDE 0.9% 1,000 ML IV SCH (00:56)
[2018-09-25] MEDS: PANTOPRAZOLE (EC) 40 MG TAB PO SCH (05:38)
[2018-09-25] MEDS: DRONEDARONE HYDROCHLORIDE 400 MG TAB PO SCH ×2 (08:07→17:40)
[2018-09-25] MEDS: SUCRALFATE (100 MG/ML) 10ML CUP PO SCH ×5 (08:19→21:33)
[2018-09-25] MEDS: MAGNESIUM OXIDE 400 MG TAB PO SCH ×2 (08:20→21:33)
[2018-09-25] MEDS: LOSARTAN 25 MG TAB PO SCH (08:20)
--- NOTE | 2018-09-25 10:55 | PN ---
Date/Time of Note Date/Time of Note DATE: 09/25/18 TIME: 10:52 Assessment/Plan VTE Prophylaxis Risk score (from Ns)>0 risk: 4 SCD applied (from Ns): Yes SCD contraindicated: low risk/ambulating Pharmacological prophylaxis: NA/contraindicated Pharm contraindication: surgical contra Lines/Catheters [facility] Peripheral IV Urinary Cath still in place: No Assessment/Plan Hospital Course Assessment and plan 1. Atypical chest pain ruled out for ACS stable, discharge soon post endoscopy 2. Chronic A. fib 3. Htn 4. Chr dyslipidemia 5. Anemia possibly chronic. Occult positive. Previous EGD/ colon in [place]/ Dr Dinh was unremarkable, except for hemorrhagic gastritis. For EGD/ colonoscopy today 6. Pacemaker S 7. Hyponatremia, possibly secondary diarrhea. Review meds. Outpatient nephrology 8. Osteoporosis 9. Chronic asthma Subjective: Events noted Objective: Vital signs stable Physical exam No pallor JVD adenopathy Regular no mrg Clear Bs+ nt nd no RRG No edema Result Diagram: 09/25/1852009/25/18 0521 Results 24hrs Laboratory Tests Test 09/24/18 13:13 09/25/18 05:21 White Blood Count 4.2 L 4.1 L Red Blood Count 3.24 L 2.80 L Hemoglobin 10.7 L 9.3 L Hematocrit 32.7 L 27.3 L Mean Corpuscular Volume 100.9 97.5 Mean Corpuscular Hemoglobin 33.0 33.2 H Mean Corpuscular Hemoglobin Concent 32.7 34.1 Red Cell Distribution Width 14.7 H 14.6 H Platelet Count 256 224 Mean Platelet Volume 8.7 9.0 Immature Granulocytes % 0.200 0.200 Neutrophils % 60.6 61.9 Lymphocytes % 26.3 23.2 Monocytes % 10.0 11.8 H Eosinophils % 2.4 2.4 Basophils % 0.5 0.5 Nucleated Red Blood Cells % 0.0 0.0 Immature Granulocytes # 0.010 0.010 Neutrophils # 2.6 2.6 Lymphocytes # 1.1 1.0 Monocytes # 0.4 0.5 Eosinophils # 0.1 0.1 Basophils # 0.0 0.0 Nucleated Red Blood Cells # 0.0 0.0 Sodium Level 130 L 133 L Potassium Level 4.1 4.4 Chloride Level 93 L 100 Carbon Dioxide Level 28 28 Anion Gap 9 5 Blood Urea Nitrogen 15 13 Creatinine 0.88 0.64 Est Glomerular Filtrat Rate mL/min Glucose Level 100 87 Calcium Level 9.0 8.3 L Phosphorus Level 4.2 Magnesium Level 2.0 Exam/Review of Systems Exam Vitals Vital Signs Date Temp Pulse Resp B/P (MAP) Pulse Ox O2 O2 Flow FiO2 Time Delivery Rate 09/25/18 Nasal 2.0 08:00 Cannula 09/25/18 98.0 60 18 143/70 98 07:14 (94) 09/22/18 27 02:30 Intake and Output 09/24/18 09/24/18 09/25/18 1515:00 23:00 07:00 IntakeIntake Total 480 ml 600 ml 60 ml BalanceBalance 480 ml 600 ml 60 ml Results Results 24hrs Laboratory Tests Test 09/24/18 13:13 09/25/18 05:21 White Blood Count 4.2 L 4.1 L Red Blood Count 3.24 L 2.80 L Hemoglobin 10.7 L 9.3 L Hematocrit 32.7 L 27.3 L Mean Corpuscular Volume 100.9 97.5 Mean Corpuscular Hemoglobin 33.0 33.2 H Mean Corpuscular Hemoglobin Concent 32.7 34.1 Red Cell Distribution Width 14.7 H 14.6 H Platelet Count 256 224 Mean Platelet Volume 8.7 9.0 Immature Granulocytes % 0.200 0.200 Neutrophils % 60.6 61.9 Lymphocytes % 26.3 23.2 Monocytes % 10.0 11.8 H Eosinophils % 2.4 2.4 Basophils % 0.5 0.5 Nucleated Red Blood Cells % 0.0 0.0 Immature Granulocytes # 0.010 0.010 Neutrophils # 2.6 2.6 Lymphocytes # 1.1 1.0 Monocytes # 0.4 0.5 Eosinophils # 0.1 0.1 Basophils # 0.0 0.0 Nucleated Red Blood Cells # 0.0 0.0 Sodium Level 130 L 133 L Potassium Level 4.1 4.4 Chloride Level 93 L 100 Carbon Dioxide Level 28 28 Anion Gap 9 5 Blood Urea Nitrogen 15 13 Creatinine 0.88 0.64 Est Glomerular Filtrat Rate mL/min Glucose Level 100 87 Calcium Level 9.0 8.3 L Phosphorus Level 4.2 Magnesium Level 2.0 Medications Medication Current Medications IV Flush (NS 3 ml) 3 ml PER PROTOCOL IV ; Start 09/22/18 at 03:00 Ondansetron HCl (Zofran Inj) 4 mg Q6H PRN IV NAUSEA/VOMITING; Start 09/22/18 at 03:00 Nitroglycerin (Nitroglycerin (Sl Tab) 0.4 Mg) 1 tab Q5M PRN SL .CHEST PAIN; Start 09/22/18 at 03:00 Acetaminophen (Tylenol Tab) 650 mg Q6H PRN PO .PAIN 1-3 OR TEMP; Start 09/22/18 at 03:00 Albuterol/ Ipratropium (Duoneb) 3 ml Q2H RESP THERAPY PRN HHN SHORTNESS OF BREATH; Start 09/22/18 at 03:00 Acetaminophen (Tylenol Tab) 500 mg Q4H PRN PO MILD PAIN(1-3)OR ELEVATED TEMP; Start 09/22/18 at 03:00 Alprazolam (Xanax) 0.25 mg TID PRN PO ANXIETY Last administered on 09/24/18at 01:42; Admin Dose 0.25 MG; Start 09/22/18 at 03:00 Atorvastatin Calcium (Lipitor) 20 mg QHS PO Last administered on 09/24/18at 20:47; Admin Dose 20 MG; Start 09/22/18 at 21:00 Dronedarone (Multaq) 400 mg BID WITH MEALS PO Last administered on 09/25/18at 08:07; Admin Dose 400 MG; Start 09/22/18 at 08:00 Losartan Potassium (Cozaar) 25 mg DAILY PO Last administered on 09/25/18at 08:20; Admin Dose 25 MG; Start 09/22/18 at 09:00 Magnesium Oxide (Mag-Ox 400) 400 mg BID PO Last administered on 09/25/18at 08:20; Admin Dose 400 MG; Start 09/22/18 at 09:00 Dimethicone (Blistex Lip [place]) 1 applic Q4H PRN TOP Dry lips; Start 09/22/18 at 07:30 Pantoprazole (Protonix Tab) 40 mg DAILY@06 PO Last administered on 09/25/18at 05:38; Admin Dose 40 MG; Start 09/23/18 at 09:30 Sucralfate (Carafate Susp) 1 gm QID PO Last administered on 09/25/18at 08:19; Admin Dose 1 GM; Start 09/24/18 at 17:00 FIDENCIO PINA MD Sep 25, 2018 10:55
[2018-09-25] MEDS ORDERED: BISACODYL (EC) 5 MG TAB PO PRN (12:30)
[2018-09-25] MEDS ORDERED: BISACODYL 10 MG SUPP PR PRN (12:30)
[2018-09-25] MEDS ORDERED: POLYETHYLENE GLYCOL 17 GM PACKET PO PRN (12:30)
[2018-09-25] MEDS ORDERED: LIDOCAINE 2% (SDV) 5 ML INJ ONE (13:17)
[2018-09-25] MEDS ORDERED: PROPOFOL 20 ML ONE (13:17)
[2018-09-25] MEDS ORDERED: FENTAnyl 50 MCG/ML VIAL ONE (13:17)
--- NOTE | 2018-09-25 13:17 | PREAC ---
Date/Time of Note Date/Time of Note DATE: 09/25/18 TIME: 13:15 Anesthesia Eval and Record Evaluation Time Pre-Procedure Interview DATE: 09/25/18 TIME: 13:15 Age 82 Sex female NPO: 8 hrs Preoperative diagnosis HISTORY OF GASTRITIS, SUSPECTED GI BLEEDING Planned procedure EGD Past Medical History Past Medical History: Includes Cardio: HTN, Arrythmia (PAROXYSMAL A FIB) Surgery & Anesthesia Issues No known issue Meds Anticoagulation: No Beta Red within 24 hr: No Reason Beta Red not given: Pt. not on B-Red Active Scripts Hydrocortisone Acetate (Hydrocortisone) 28 Gm Oint...g., 28 GM TP DAILY, #1 Prov:SANJUANITA FLAHERTY MD 09/17/18 Dronedarone Hydrochloride* (Multaq*) 400 Mg Tablet, 400 MG PO BID WITH MEALS for 30 Days, #60 TAB Prov:KAYLEEN SIMON MD 11/20/17 Reported Medications Acetaminophen* (Acetaminophen*) 500 MG Extra Strength Tablet, 500 MG PO Q4H PRN for PAIN AND OR ELEVATED TEMP, TAB 09/21/18 Alendronate Sodium* (Fosamax*) 70 Mg Tablet, 70 MG PO Q7D for every tuesday09/21/18 Losartan Potassium* (Losartan Potassium*) 25 Mg Tablet, 25 MG PO DAILY, TAB 09/14/16 Magnesium Oxide* (Mag-Oxide*) 400 Mg Tablet, 400 MG PO BID, TAB 09/14/16 Calcium Carbonate (CALCIUM) 600 Mg Tablet, 600 MG PO, TAB 09/14/16 Gluc 2KCL/Chondr/Ap Hy/Hy Ac (GLUCOSAMINE & CHONDROITIN CAP) 1 Each Capsule, 1 EACH PO, CAP 09/14/16 Mu-Vits-Min Th/Lycopene/Lutein (CENTRUM SILVER TABLET) 1 Each Tablet, 1 EACH PO, TAB 09/14/16 Alprazolam* (Alprazolam*) 0.25 Mg Tablet, 0.25 MG PO TID PRN for ANXIETY, TAB 09/14/16 Atorvastatin Calcium* (Atorvastatin Calcium*) 20 Mg Tablet, 20 MG PO QHS, #30 TAB 09/14/16 Discontinued Reported Medications Benzonatate* (Benzonatate*) 100 Mg Capsule, 100 MG PO TID PRN for COUGH, CAP 11/19/17 Apixaban* (Eliquis*) 2.5 Mg Tablet, 2.5 MG PO BID, TAB 09/14/16 Discontinued Scripts Bismuth Subsalicylate (PINK BISMUTH) 262 Mg Tablet, 262 MG PO QID for 2 qid for 10 Days, #100 TAB Prov:KAYLEEN SIMON MD 11/20/17 Clarithromycin* (Clarithromycin*) 500 Mg Tablet, 500 MG PO BID for 10 Days, #20 TAB Prov:KAYLEEN SIMON MD 11/20/17 Amoxicillin* (Amoxicillin*) 500 Mg Cap, 500 MG PO BID for 2 caps bid for 10 Days, #40 CAP Prov:KAYLEEN SIMON MD 11/20/17 Pantoprazole* (Pantoprazole*) 40 Mg Tablet.dr, 40 MG PO BID for 60 Days, #120 TAB Prov:KAYLEEN SIMON MD 11/20/17 Sucralfate (Carafate) 1 Gm Tablet, 1 GM PO QID for 30 Days, #120 TAB For 1 month only Prov:KAYLEEN SIMON MD 11/20/17 Current Medications IV Flush (NS 3 ml) 3 ml PER PROTOCOL IV ; Start 09/22/18 at 03:00 Ondansetron HCl (Zofran Inj) 4 mg Q6H PRN IV NAUSEA/VOMITING; Start 09/22/18 at 03:00 Nitroglycerin (Nitroglycerin (Sl Tab) 0.4 Mg) 1 tab Q5M PRN SL .CHEST PAIN; Start 09/22/18 at 03:00 Acetaminophen (Tylenol Tab) 650 mg Q6H PRN PO .PAIN 1-3 OR TEMP; Start 09/22/18 at 03:00 Albuterol/ Ipratropium (Duoneb) 3 ml Q2H RESP THERAPY PRN HHN SHORTNESS OF B REATH; Start 09/22/18 at 03:00 Acetaminophen (Tylenol Tab) 500 mg Q4H PRN PO MILD PAIN(1-3)OR ELEVATED TEMP; Start 09/22/18 at 03:00 Alprazolam (Xanax) 0.25 mg TID PRN PO ANXIETY Last administered on 09/24/18at 01:42; Admin Dose 0.25 MG; Start 09/22/18 at 03:00 Atorvastatin Calcium (Lipitor) 20 mg QHS PO Last administered on 09/24/18at 20:47; Admin Dose 20 MG; Start 09/22/18 at 21:00 Dronedarone (Multaq) 400 mg BID WITH MEALS PO Last administered on 09/25/18 08:07; Admin Dose 400 MG; Start 09/22/18 at 08:00 Losartan Potassium (Cozaar) 25 mg DAILY PO Last administered on 09/25/18 08:20; Admin Dose 25 MG; Start 09/22/18 at 09:00 Magnesium Oxide (Mag-Ox 400) 400 mg BID PO Last administered on 09/25/18 08:20; Admin Dose 400 MG; Start 09/22/18 at 09:00 Dimethicone (Blistex Lip [place]) 1 applic Q4H PRN TOP Dry lips; Start 09/22/18 at 07:30 Pantoprazole (Protonix Tab) 40 mg DAILY@06 PO Last administered on 09/25/18at 05:38; Admin Dose 40 MG; Start 09/23/18 at 09:30 Sucralfate (Carafate Susp) 1 gm QID PO Last administered on 09/25/18 08:19; Admin Dose 1 GM; Start 09/24/18 at 17:00 Bisacodyl (Dulcolax) 10 mg DAILY PRN PO CONSTIPATION; Start 09/25/18 at 12:30 Bisacodyl (Dulcolax Supp) 10 mg Q48H PRN NE CONSTIPATION; Start 09/25/18 at 12:30 Polyethylene Glycol (Miralax) 17 gm BID PRN PO CONSTIPATION; Start 09/25/18 at 12:30 Meds reviewed: Yes Allergies Coded Allergies: No Known Allergy (Unverified , 09/21/18) Allergies Reviewed: Yes Labs/Studies Labs Reviewed: Reviewed by anesthesiologist Result Diagram: 09/25/1852009/25/18520 Laboratory Tests 09/25/18 05:21 test: N/A Pre-procedure Exam Last vitals Vital Signs Date Temp Pulse Resp B/P (MAP) Pulse Ox O2 O2 Flow FiO2 Time Delivery Rate 09/25/18 Non 12:44 Rebreather 09/25/18 98.0 60 18 136/61 98 11:52 (86) 09/25/18 2.0 08:00 09/22/18 27 02:30 Airway: Adequate mouth opening, Adequate thyromental dist Mallampati: Mallampati II Teeth: Normal Lung: Normal Heart: Normal ASA Physical Status ASA physical status: 2 Emergency: None Planned Anesthetic General/MAC: MAC Planned Pain Management Parenteral pain med Pre-operative Attestations Prior to commencing anesthesia and surgery, the patient was re-evaluated, there was verification of: *The patient's identity *The results of appropriate recent lab work and preoperative vital signs *The above evaluation not changing prior to induction *Anesthetic plan, risk benefits, alternative and complications discussed with patient/family; questions answered; patient/family understands, accepts and wishes to proceed. Graham Rosario M.D. Sep 25, 2018 13:17
--- NOTE | 2018-09-25 13:53 | PAC ---
Date/Time of Note Date/Time of Note DATE: 09/25/18 TIME: 13:53 Post-Anesthesia Notes Post-Anesthesia Note Last documented vital signs Vital Signs Date Temp Pulse Resp B/P (MAP) Pulse Ox O2 O2 Flow FiO2 Time Delivery Rate 09/25/18 Non 12:44 Rebreather 09/25/18 98.0 60 18 136/61 98 11:52 (86) 09/25/18 2.0 08:00 09/22/18 27 02:30 Activity: WNL Respiratory function: WNL Cardiovascular function: WNL Mental status: Baseline Pain reasonably controlled: Yes Hydration appropriate: Yes Nausea/Vomiting absent: Yes JONAH NOLAN Sep 25, 2018 13:53
[2018-09-25] MEDS: ATORVASTATIN 20 MG TAB PO SCH (21:33)
[2018-09-26] VITALS: BP 138/65; PULSE 61; RESP 18
[2018-09-26 03:34] VITALS: BP 106/53; PULSE 60; RESP 19
[2018-09-26] MEDS: PANTOPRAZOLE (EC) 40 MG TAB PO SCH (06:43)
[2018-09-26 08:00] VITALS: BP 115/54; PULSE 60; RESP 20
[2018-09-26] MEDS: DRONEDARONE HYDROCHLORIDE 400 MG TAB PO SCH (09:08)
[2018-09-26] MEDS: SUCRALFATE (100 MG/ML) 10ML CUP PO SCH ×2 (09:08→12:38)
[2018-09-26] MEDS: MAGNESIUM OXIDE 400 MG TAB PO SCH (09:08)
[2018-09-26] MEDS: LOSARTAN 25 MG TAB PO SCH (09:09)
[2018-09-26 11:17] VITALS: BP 109/54; PULSE 61; RESP 20
--- NOTE | 2018-09-26 11:49 | DS ---
Date/Time of Note Date/Time of Note DATE: 09/26/18 TIME: 11:40 Discharge Summary Admission/Discharge Info Admit Date/Time Sep 21, 2018 at 23:08 Discharge Date/Time Patient Condition: Stable Consults [facility] Procedures CXR -wnl ECHO Conclusions: Normal left ventricular systolic function. Normal left ventricular cavity size. Normal left ventricular wall thickness. Ejection fraction is visually estimated at 65 %. Abnormal Diastolic Function. Normal right ventricular size. Normal right ventricular systolic function. Linear artifact in right ventricle suggestive of catheter, pacer lead, or ICD lead. The left atrium is normal in size. There is mild enlargement of right atrium. Trace mitral regurgitation. No hemodynamically significant aortic stenosis by doppler. Mild aortic valve regurgitation. The estimated Peak RVSP is 28 mmHg. There is moderate tricuspid regurgitation. Normal pericardium with no significant pericardial effusion. Electronically Signed By: EGD Antral erosive gastritis. Pathology pending Hx of Present Illness 82-year-old female admitted with shortness of breath Hospital Course Hospital course Evaluated managed for dyspnea chest pain. Ruled out for acute coronary syndrome by enzymes EKG symptoms. Possibly symptomatic anemia. Sh troponin okay. X-ray negative. Therefore plan was for its guidance of secondary prevention of ACS and treating her A. fib. Recommendations were to continue risk factor modification/medical management. We asked patient to restart anticoagulation for atrial fibrillation due to high risk for stroke. However prior to this we decided to have evaluation of her anemia. Egd didnt show any active bleed. Pathology/ Bx results pending Needs to follow up w GI. Will need to follow up w pcp & visit cardio soon to ask her to reconsider a fib anticoagulation. Low risk of bleeding with negative egd/ other co morbidities. 1. Atypical chest pain ruled out for ACS stable, DC home. 2. Chronic A. fib; consider eliquis/ xarelto in about a week. 3. Htn 4. Chr dyslipidemia 5. 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 Previous EGD/ colon in [place] [Dr Dinh] unremarkable, except for hemorrhagic gastritis. s/p EGD yesterday: Erosive gastritis. 6. Pacemaker Status 7. Hyponatremia, possibly secondary diarrhea. Reviewed meds. Consider outpatient nephrology. Improved, now 134. 8. Osteoporosis 9. Chronic asthma Home Meds Active Scripts Hydrocortisone Acetate (Hydrocortisone) 28 Gm Oint...g., 28 GM TP DAILY, #1 Prov:SANJUANITA FLAHERTY MD 09/17/18 Dronedarone Hydrochloride* (Multaq*) 400 Mg Tablet, 400 MG PO BID WITH MEALS for 30 Days, #60 TAB Prov:KAYLEEN SIMON MD 11/20/17 Reported Medications Acetaminophen* (Acetaminophen*) 500 MG Extra Strength Tablet, 500 MG PO Q4H PRN for PAIN AND OR ELEVATED TEMP, TAB 09/21/18 Alendronate Sodium* (Fosamax*) 70 Mg Tablet, 70 MG PO Q7D for every tuesday09/21/18 Losartan Potassium* (Losartan Potassium*) 25 Mg Tablet, 25 MG PO DAILY, TAB 09/14/16 Magnesium Oxide* (Mag-Oxide*) 400 Mg Tablet, 400 MG PO BID, TAB 09/14/16 Calcium Carbonate (CALCIUM) 600 Mg Tablet, 600 MG PO, TAB 09/14/16 Gluc 2KCL/Chondr/Ap Hy/Hy Ac (GLUCOSAMINE & CHONDROITIN CAP) 1 Each Capsule, 1 EACH PO, CAP 09/14/16 Mu-Vits-Min Th/Lycopene/Lutein (CENTRUM SILVER TABLET) 1 Each Tablet, 1 EACH PO, TAB 09/14/16 Alprazolam* (Alprazolam*) 0.25 Mg Tablet, 0.25 MG PO TID PRN for ANXIETY, TAB 09/14/16 Atorvastatin Calcium* (Atorvastatin Calcium*) 20 Mg Tablet, 20 MG PO QHS, #30 TAB 09/14/16 Discontinued Reported Medications Benzonatate* (Benzonatate*) 100 Mg Capsule, 100 MG PO TID PRN for COUGH, CAP 11/19/17 Apixaban* (Eliquis*) 2.5 Mg Tablet, 2.5 MG PO BID, TAB 09/14/16 Discontinued Scripts Bismuth Subsalicylate (PINK BISMUTH) 262 Mg Tablet, 262 MG PO QID for 2 qid for 10 Days, #100 TAB Prov:KAYLEEN SIMON MD 11/20/17 Clarithromycin* (Clarithromycin*) 500 Mg Tablet, 500 MG PO BID for 10 Days, #20 TAB Prov:KAYLEEN SIMON MD 11/20/17 Amoxicillin* (Amoxicillin*) 500 Mg Cap, 500 MG PO BID for 2 caps bid for 10 Days, #40 CAP Prov:KAYLEEN SIMON MD 11/20/17 Pantoprazole* (Pantoprazole*) 40 Mg Tablet.dr, 40 MG PO BID for 60 Days, #120 TAB Prov:KAYLEEN SIMON MD 11/20/17 Sucralfate (Carafate) 1 Gm Tablet, 1 GM PO QID for 30 Days, #120 TAB For 1 month only Prov:KAYLEEN SIMON MD 11/20/17 Primary Care Provider Not On Staff Doctor Time spent on discharge: > 30 minutes Pending Labs Laboratory Tests Test 09/26/18 05:06 09/26/18 09:30 White Blood Count 4.8 10^3/ul (4.8-10.8) Red Blood Count 2.63 10^6/ul (4.20-5.40) Hemoglobin 8.7 g/dl (12.0-16.0) Hematocrit 25.9 % (37.0-47.0) Mean Corpuscular Volume 98.5 fl (82.0-101.0) Mean Corpuscular Hemoglobin 33.1 pg (29.0-33.0) Mean Corpuscular 33.6 g/dl (32.0-37.0) Hemoglobin Concent Red Cell Distribution Width 14.6 % (11.5-14.5) Platelet Count 223 10^3/UL (140-415) Mean Platelet Volume 9.1 fl (7.4-10.4) Immature Granulocytes % 0.200 % (0.001-0.429) Neutrophils % 61.8 % (39.0-77.0) Lymphocytes % 24.5 % (15.0-51.0) Monocytes % 11.0 % (0.0-11.0) Eosinophils % 1.9 % (0.0-7.0) Basophils % 0.6 % (0.0-2.0) Nucleated Red Blood Cells % 0.0 /100WBC (0.0-0.0) Immature Granulocytes # 0.010 10^3/ul (0.0-0.031) Neutrophils # 3.0 10^3/ul (1.6-7.5) Lymphocytes # 1.2 10^3/ul (0.8-2.9) Monocytes # 0.5 10^3/ul (0.3-0.9) Eosinophils # 0.1 10^3/ul (0.0-0.5) Basophils # 0.0 10^3/ul (0.0-0.1) Nucleated Red Blood Cells # 0.0 10^3/ul (0.0-0.0) Sodium Level 134 mmol/L (135-144) Potassium Level 4.6 mmol/L (3.5-5.1) Chloride Level 99 mmol/L (97-110) Carbon Dioxide Level 29 mmol/L (21-31) Anion Gap 6 (5-13) Blood Urea Nitrogen 16 mg/dl (7-20) Creatinine 0.74 mg/dl (0.44-1.00) Est Glomerular Filtrat mL/min (>60) Rate mL/min Glucose Level 97 mg/dl (70-220) Calcium Level 8.5 mg/dl (8.4-10.2) Magnesium Level 1.9 mg/dl (1.7-2.5) Iron Level 34 ug/dl (35-150) Total Iron Binding Capacity 377 ug/dl (241-421) Percent Iron Saturation 9 % SAT (22-52) Lab Scanned Report REFERENCE LAB [id number] FIDENCIO PINA MD Sep 26, 2018 11:48
--- NOTE | 2018-09-26 11:51 | PDOCDIS ---
Discharge Instructions CONDITION [id number] Patient Condition: [id number] Stable HOME CARE INSTRUCTIONS: [id number] Diet Instructions: [id number] y Rest between Activity Do not Drive FOLLOW UP/APPOINTMENTS Follow-up Plan appt Dr Turner 1wk PCP & regular cloth packer 1-2wks. Ask PCP to obtain Summary from Medical Re cords: [phone]. Referral to Nephrology 1-3wks for low sodium. FIDENCIO PINA MD Sep 26, 2018 11:51
[2018-09-26] MEDS ORDERED: DOCUSATE SODIUM 100 MG CAP PO SCH (12:00)
--- NOTE | 2018-09-26 12:08 | PN ---
Date/Time of Note Date/Time of Note DATE: 09/26/18 TIME: 12:03 Assessment/Plan VTE Prophylaxis Risk score (from Ns)>0 risk: 5 [place] [facility] [place] Pharmacological prophylaxis: NA/contraindicated, other Pharm contraindication: low risk/ambulating Lines/Catheters IV [facility]ter [facility]from [facility] [place] Urinary Cath still in place: No Assessment/Plan Hospital Course Assessment: Anemia/Melena EGD 11/18/17 1. Hemorrhagic gastritis in the antrum -No active bleeding 2. Small hiatal hernia 3. Otherwise normal EGD EGD 09/25/2018 Antral erosive gastritis. No evidence of active GI bleed Abdominal pain Atrial fibrillation Pacemaker Hypertension Chest pain, ACS ruled out Plan: PPI 40 mg p.o. daily x6 weeks Pt to f/u with GI to review pathology results Pt cleared for out-pt management Patient seen in collaboration with Dr. Turner Subjective: Course reviewed with nursing staff Patient interviewed and examined All labs, imaging and other results reviewed The patient feels well, tolerating diet without any issues Discussed results of EGD, pt verbalized understanding Constitutional: alert, oriented Psych: no complaints Head: normocephalic, atraumatic Eyes: nl conjunctiva, EOMI ENMT: nl external ears & nose Neck: supple Respiratory: clear to auscultation Cardiovascular: regular rate and rhythm, nl pulses Gastrointestinal: soft, nl liver, spleen, non-tender Musculoskeletal: nl extremities to inspection Extremities: normal pulses Result Diagram: 09/26/18 0506 09/26/18 0506 Results 24hrs Laboratory Tests Test 09/26/18 05:06 09/26/18 09:30 White Blood Count 4.8 Red Blood Count 2.63 L Hemoglobin 8.7 L Hematocrit 25.9 L Mean Corpuscular Volume 98.5 Mean Corpuscular Hemoglobin 33.1 H Mean Corpuscular Hemoglobin Concent 33.6 Red Cell Distribution Width 14.6 H Platelet Count 223 Mean Platelet Volume 9.1 Immature Granulocytes % 0.200 Neutrophils % 61.8 Lymphocytes % 24.5 Monocytes % 11.0 Eosinophils % 1.9 Basophils % 0.6 Nucleated Red Blood Cells % 0.0 Immature Granulocytes # 0.010 Neutrophils # 3.0 Lymphocytes # 1.2 Monocytes # 0.5 Eosinophils # 0.1 Basophils # 0.0 Nucleated Red Blood Cells # 0.0 Sodium Level 134 L Potassium Level 4.6 Chloride Level 99 Carbon Dioxide Level 29 Anion Gap 6 Blood Urea Nitrogen 16 Creatinine 0.74 Est Glomerular Filtrat Rate mL/min Glucose Level 97 Calcium Level 8.5 Magnesium Level 1.9 Iron Level 34 L Total Iron Binding Capacity 377 Percent Iron Saturation 9 L Lab Scanned Report REFERENCE LAB Exam/Review of Systems Exam Vitals Vital Signs Date Temp Pulse Resp B/P (MAP) Pulse Ox O2 O2 Flow FiO2 Time Delivery Rate 09/26/18 98.0 61 20 109/54 99 Room Air 11:17 (72) 09/26/18 2.0 02:11 Intake and Output 09/25/18 09/25/18 09/26/18 1515:00 23:00 07:00 IntakeIntake Total 360 ml 480 ml 240 ml BalanceBalance 360 ml 480 ml 240 ml Results Results 24hrs Laboratory Tests Test 09/26/18 05:06 09/26/18 09:30 White Blood Count 4.8 Red Blood Count 2.63 L Hemoglobin 8.7 L Hematocrit 25.9 L Mean Corpuscular Volume 98.5 Mean Corpuscular Hemoglobin 33.1 H Mean Corpuscular Hemoglobin Concent 33.6 Red Cell Distribution Width 14.6 H Platelet Count 223 Mean Platelet Volume 9.1 Immature Granulocytes % 0.200 Neutrophils % 61.8 Lymphocytes % 24.5 Monocytes % 11.0 Eosinophils % 1.9 Basophils % 0.6 Nucleated Red Blood Cells % 0.0 Immature Granulocytes # 0.010 Neutrophils # 3.0 Lymphocytes # 1.2 Monocytes # 0.5 Eosinophils # 0.1 Basophils # 0.0 Nucleated Red Blood Cells # 0.0 Sodium Level 134 L Potassium Level 4.6 Chloride Level 99 Carbon Dioxide Level 29 Anion Gap 6 Blood Urea Nitrogen 16 Creatinine 0.74 Est Glomerular Filtrat Rate mL/min Glucose Level 97 Calcium Level 8.5 Magnesium Level 1.9 Iron Level 34 L Total Iron Binding Capacity 377 Percent Iron Saturation 9 L Lab Scanned Report REFERENCE LAB Medications Medication Current Medications IV Flush (NS 3 ml) 3 ml PER PROTOCOL IV ; Start 09/22/18 at 03:00 Ondansetron HCl (Zofran Inj) 4 mg Q6H PRN IV NAUSEA/VOMITING; Start 09/22/18 at 03:00 Nitroglycerin (Nitroglycerin (Sl Tab) 0.4 Mg) 1 tab Q5M PRN SL .CHEST PAIN; S tart 09/22/18 at 03:00 Acetaminophen (Tylenol Tab) 650 mg Q6H PRN PO .PAIN 1-3 OR TEMP; Start 09/22/18 at 03:00 Albuterol/ Ipratropium (Duoneb) 3 ml Q2H RESP THERAPY PRN HHN SHORTNESS OF BREATH; Start 09/22/18 at 03:00 Acetaminophen (Tylenol Tab) 500 mg Q4H PRN PO MILD PAIN(1-3)OR ELEVATED TEMP; Start 09/22/18 at 03:00 Alprazolam (Xanax) 0.25 mg TID PRN PO ANXIETY Last administered on 09/24/18 01:42; Admin Dose 0.25 MG; Start 09/22/18 at 03:00 Atorvastatin Calcium (Lipitor) 20 mg QHS PO Last administered on 09/25/18 21:33; Admin Dose 20 MG; Start 09/22/18 at 21:00 Dronedarone (Multaq) 400 mg BID WITH MEALS PO Last administered on 09/26/18 09:08; Admin Dose 400 MG; Start 09/22/18 at 08:00 Losartan Potassium (Cozaar) 25 mg DAILY PO Last administered on 09/26/18 09:09; Admin Dose 25 MG; Start 09/22/18 at 09:00 Magnesium Oxide (Mag-Ox 400) 400 mg BID PO Last administered on 09/26/18 09:08; Admin Dose 400 MG; Start 09/22/18 at 09:00 Dimethicone (Blistex Lip [place]) 1 applic Q4H PRN TOP Dry lips; Start 09/22/18 at 07:30 Pantoprazole (Protonix Tab) 40 mg DAILY@06 PO Last administered on 09/26/18 06:43; Admin Dose 40 MG; Start 09/23/18 at 09:30 Sucralfate (Carafate Susp) 1 gm QID PO Last administered on 09/26/18 09:08; Admin Dose 1 GM; Start 09/24/18 at 17:00 Bisacodyl (Dulcolax) 10 mg DAILY PRN PO CONSTIPATION; Start 09/25/18 at 12:30 Bisacodyl (Dulcolax Supp) 10 mg Q48H PRN NM CONSTIPATION; Start 09/25/18 at 12:30 Polyethylene Glycol (Miralax) 17 gm BID PRN PO CONSTIPATION; Start 09/25/18 at 12:30 Ferrous Sulfate (Feosol Liquid Cup) 300 mg BID PO ; Start 09/26/18 at 21:00 Docusate Sodium (Colace) 100 mg DAILY PO ; Start 09/26/18 at 12:00 DOT ENGLE Sep 26, 2018 12:08
[2018-09-26 15:45] VITALS: BP 112/58; PULSE 60; RESP 20
[2018-09-26] MEDS: ALPRAZOLAM 0.25 MG TAB PO PRN (15:47)
[2018-09-26] MEDS ORDERED: FERROUS SULFATE 60 MG/ML 5ML CUP PO SCH (21:00)
== END 2018-09-26 18:36 | disposition home or self-care (01) | DRG 313 ==
LOC: E/R 20:39 → 6WM 23:08
PROVIDERS: ADMIT Internal Medicine; ATTEND Internal Medicine
PROC: 0DB68ZX Excision of Stomach, Via Natural or Artificial Opening Endoscopic, Diagnostic (ICD-10-PCS; principal; 2018-09-25 12:00)
DX: R07.89 Other chest pain (principal); E87.1 Hypo-osmolality and hyponatremia; I48.0 Paroxysmal atrial fibrillation; D64.9 Anemia, unspecified; E78.5 Hyperlipidemia, unspecified; J45.909 Unspecified asthma, uncomplicated; M81.0 Age-related osteoporosis without current pathological fracture; K29.00 Acute gastritis without bleeding; Z79.01 Long term (current) use of anticoagulants; Z95.0 Presence of cardiac pacemaker
CPT/HCPCS: 36415; 71045; 80048; 80053; 80061; 81003; 82270; 82436; 83036; 83540; 83690; 83735; 83880; 83930; 83935; 84100; 84133; 84300; 84443; 84484; 85025; 85610; 85730; 88305; 88312; 93005; 93306; 94644; 96374; J2405; J3010; J7030

== ENCOUNTER 2018-10-13 07:33 | Emergency (ER) | payer MEDICARE, OTHER ==
[~2018-10-13] VITALS: Ht 152.4 cm; Wt 48.0 kg
[~2018-10-13 07:33] MED LIST changes: -ALPR0.254 PO; -AMOX500C2 PO; -APIX2.5T PO; -BENZ-5 PO; -CLAR500T PO; -SUCR1TAB35 PO; -[UNRECOGNIZED DRUG - CODE] PO
[2018-10-13 07:38] VITALS: Ht 152.4 cm; Wt 48.0 kg
[2018-10-13] MEDS ORDERED: IBUPROFEN 600 MG TAB PO ONE (08:30)
[2018-10-13 10:10] VITALS: BP 150/60; PULSE 69; RESP 18
== END 2018-10-13 10:13 | disposition home or self-care (01) ==
LOC: FTE 07:33
DX: S09.90XA Unspecified injury of head, initial encounter (principal); I10 Essential (primary) hypertension; I48.91 Unspecified atrial fibrillation; J45.909 Unspecified asthma, uncomplicated; R51 Headache; W01.198A Fall on same level from slipping, tripping and stumbling with subsequent striking against other object, initial encounter; Y92.9 Unspecified place or not applicable
CPT/HCPCS: 70450; 73030; 73502; 73510